=== PATIENT | female | born 1985 | race Caucasian/White ===

== ENCOUNTER → 2023-06-27 | Outpatient (CLI) | payer OTHER, SELFPAY ==
--- OUTSIDE RECORDS SUMMARY | 2023-06-27 19:38 | XMS RPT_ITS | CCD ---
Author Name Unknown Address [address] [place] [address] Organization [facility] Care Team Providers Care Stamping Operator Name Role Phone Shamir Pritchard Primary Care Provider Shamir Pritchard MD Primary Care Provider Macho AGUIAR, Shamir Primary Care Provider TEDDY PRITCHARDAH Primary Care Unavailable JASMEET YANCEY Attending Unavailable JASMEET YANCEY Referring Unavailable [facility] Primary Care Unavailable JASMEET YANCEY Attending Unavailable JASMEET YANCEY Referring Unavailable [facility] Primary Care Unavailable [facility] Attending Unavailable [facility] Referring Unavailable [facility] Primary Care Unavailable SELF, SELF Referring Unavailable MARCIA WOOD Attending Unavailable MARCIA WOOD Referring Unavailable KATHERIN LOU Attending Unavailable [facility] Primary Care Unavailable [facility] Primary Care Unavailable SELF, SELF Referring Unavailable JASMEET YANCEY Attending Unavailable SRINIVASAN DOMINGUEZ Attending Unavailable [facility] Primary Care Unavailable [facility] Primary Care Unavailable ADELITA MILLER Attending Unavailable Unavailable Primary Care Provider Unavailabl e PHYSICIAN, PCP UNKNOWN Primary Care Unavailab le PHYSICIAN, PCP UNKNOWN Primary Care Unavailab le PHYSICIAN, PCP UNKNOWN Primary Care Unavailab le SHETGERI, DEVAN U Admitting Unavailabl e PHYSICIAN, PCP UNKNOWN Primary Care Unavailab le SHETGERI, DEVAN U Referring Unavailabl e HOSPITALISTS, [facility] Consulting Unavaila ble KERI CORTEZ Attending Unavailable KINZA, ISAAC Consulting Unavailable KINZA ISAAC Consulting Unavailable ISAAC ECHOLS Consulting Unavailable Shamir Pritchard MD Primary Care Provide r [facility] Unavailable SHETGERI, DEVAN Referring Unavailable SHETGERI, DEVAN Attending Unavailable [facility] Unavailable SHETGERI, DEVAN Referring Unavailable SHETGERI, DEVAN Attending Unavailable [facility] Unavailable SHETGERI, DEVAN Referring Unavailable SHETGERI, DEVAN Attending Unavailable [facility] Unavailable SHETGERI, DEVAN Referring Unavailable SHETGERI, DEVAN Attending Unavailable [facility] Unavailable SHETGERI, DEVAN Referring Unavailable SHETGERI, DEVAN Attending Unavailable [facility] Unavailable SHETGERI, DEVAN Referring Unavailable SHETGERI, DEVAN Attending Unavailable [facility] Unavailable SHETGERI, DEVAN Referring Unavailable SHETGERI, DEVAN Attending Unavailable [facility] Unavailable SHETGERI, DEVAN Attending Unavailable SHETGERI, DEVAN Referring Unavailable [facility] Unavailable SHETGERI, DEVAN Referring Unavailable SHETGERI, DEVAN Attending Unavailable [facility] Unavailable SHETGERI, DEVAN Attending Unavailable SHETGERI, DEVAN Referring Unavailable [facility] Unavailable SHETGERI, DEVAN Attending Unavailable SHETGERI, DEVAN Referring Unavailable [facility] Unavailable SHETGERI, DEVAN Attending Unavailable SHETGERI, DEVAN Referring Unavailable [facility] Unavailable SHETGERI, DEVAN Attending Unavailable SHETGERI, DEVAN Referring Unavailable [facility] Unavailable SHETGERI, DEVAN Referring Unavailable SHETGERI, DEVAN Attending Unavailable [facility] Unavailable SHETGERI, DEVAN Referring Unavailable SHETGERI, DEVAN Attending Unavailable [facility] Unavailable [facility] Unavailable SHETGERI, DEVAN Referring Unavailable SHETGERI, DEVAN Attending Unavailable [facility] Unavail able PATRICIA RODRIGUEZ Attending Unavailab NGHIA Macias Admitting Unavailable NGHIA FULLER Referring Unavailable NGHIA FULLER Attending Unavailable NGHIA FULLER Admitting Unavailable MACHOSHAMIR [facility] Unavail able NGHIA FULLER Attending Unavailable MACHOSHAMIRTH Primary Care Unavail able NGHIA FULLER [facility] Un[facility] Allergies Allergy Classification Reported Allergen(s) Allergy Type Date of Onset Reaction(s) Facility (20 sources) Honey bee venom Propensity to adverse reactions to drug [facility] BEE VENOM PROTEIN (HONEY BEE); Translations: [BEE VENOM PROTEIN (HONEY BEE)] Propensity to adverse reactions to drug (disorder) 7 Anaphylaxis [facility] Repository Medications Current Medications Medication Drug Class(es) Dates Sig (Normalized) Sig (Original) cephalexin 500 mg oral capsule (2 sources) Cephalosporin Antibacterial Start: 09-11-2021 End: 09-18-2021 take 1 capsule by mouth every twelve hours cephALEXin 500 MG capsule Indications: Urinary frequency Take 1 capsule by mouth every 12 hours for 7 days. 14 capsule 0 09/11/2021 09/18/2021 Active Completed/Discontinued Medications Medication Drug Class(es) Dates Sig (Normalized) Sig (Original) dexamethasone phosphate 10 mg/ml injectable solution (2 sources) Corticosteroid Start: 11-21-2022 End: 11-21-2022 dexAMETHasone (DECADRON) injection 10 mg 2 ml famotidine 10 mg/ml injection (1 source) Histamine-2 Receptor Antagonist Start: 01-14-2022 End: 01-14-2022 famotidine (PF) (PEPCID) injection 20 mg Problems Active Problems Problem Classification Problem Date Documented Date Episodic/Chronic Acute and chronic tonsillitis (20 sources) Hypertrophy of tonsils; Translations: [Hypertrophy of tonsils] Onset: 09-11-2021 Chronic Disorders of lipid metabolism (9 sources) Mixed hyperlipidemia; Translations: [Mixed hyperlipidemia] Onset: 01-29-2021 01-29-2021 Chronic Genitourinary symptoms and ill-defined conditions (1 source) Increased frequency of urination; Translations: [Frequency of micturition] Episodic Menstrual disorders (1 source) Missed period; Translations: [Missed menses] Chronic Nausea and vomiting (1 source) Nausea and vomiting; Translations: [Nausea and vomiting during ] Episodic Other complications of (1 source) High risk ; Translations: [High-risk , young multigravida in first trimester] Episodic Other connective tissue disease (4 sources) Arthrodesis status; Translations: [Arthrodesis status] Onset: 03-20-2023 Episodic Other connective tissue disease (2 sources) History of cervical spine fusion; Translations: [Arthrodesis status] Onset: 04-16-2023 04-16-2023 Episodic Other lower respiratory disease (15 sources) Snoring; Translations: [Snoring] Onset: 11-28-2022 11-28-2022 Episodic Other lower respiratory disease (3 sources) Snoring; Translations: [Snoring] Onset: 11-28-2022 Episodic Other non-traumatic joint disorders (1 source) Temporomandibular joint disorder; 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 Other nutritional; endocrine; and metabolic disorders (11 sources) Body mass index 30+ - obesity; Translations: [Body mass index (BMI) 35.0-35.9, adult] Onset: 01-29-2021 Chronic Other nutritional; endocrine; and metabolic disorders (2 sources) Obesity, unspecified; Translations: [Obesity, unspecified] Onset: 04-16-2023 Chronic Other nutritional; endocrine; and metabolic disorders (9 sources) Obese class I; Translations: [Obesity (BMI 30.0-34.9)] Onset: 03-23-2019 03-23-2019 Other conditions (3 sources) Abnormality of heart; Translations: [ cardiac anomaly affecting , antepartum] Onset: 06-25-2019 06-25-2019 Chronic Other screening for suspected conditions (not mental disorders or infectious disease) (2 sources) care status; Translations: [ care, subsequent , first trimester] Episodic Other upper respiratory disease (5 sources) Chronic nasopharyngitis; Translations: [Chronic nasopharyngitis] Onset: 11-28-2022 11-28-2022 Chronic Other upper respiratory infections (4 sources) Sore throat symptom; Translations: [Acute pharyngitis, unspecified] Onset: 11-21-2022 11-21-2022 Episodic Residual codes; unclassified (2 sources) Gestation period, 9 weeks; Translations: [9 weeks gestation of ] Episodic Residual codes; unclassified (1 source) Gestation period, 12 weeks; Translations: [12 weeks gestation of ] Episodic Residual codes; unclassified (1 source) Gestation period, 20 weeks; Translations: [20 weeks gestation of ] Episodic Residual codes; unclassified (1 source) Illness, unspecified; Translations: [Illness, unspecified] Onset: 12-03-2022 Episodic Residual codes; unclassified (1 source) Gestation period, 16 weeks; Translations: [16 weeks gestation of ] Spondylosis; intervertebral disc disorders; other back problems (3 sources) Other spondylosis with radiculopathy, cervical region; Translations: [Other spondylosis with radiculopathy, cervical region] Onset: 12-03-2022 Chronic Spondylosis; intervertebral disc disorders; other back problems (12 sources) Backache; Translations: [Dorsalgia, unspecified] Onset: 11-29-2022 11-29-2022 Episodic Past or Other Problems Problem Classification Problem Date Documented Date Episodic/Chronic Abdominal pain (2 sources) Left flank pain; Translations: [Pelvic and perineal pain] Episodic Administrative/social admission (10 sources) Patient encounter status; Translations: [Encounter for adoption services] Onset: 07-29-2019 Resolved: 01-29-2021 Episodic Allergic reactions (3 sources) Contact dermatitis; Translations: [Unspecified contact dermatitis, unspecified cause] Onset: 01-14-2022 Episodic Diabetes mellitus without complication (20 sources) Abnormal glucose tolerance test; Translations: [Other abnormal glucose] Onset: 03-04-2017 Resolved: 06-21-2017 06-21-2017 Episodic Mood disorders (8 sources) Mood disorders Onset: 06-21-2017 Resolved: 06-21-2017 06-21-2017 Neoplasms of unspecified nature or uncertain behavior (9 sources) Neoplasm of uncertain behavior of connective and soft tissue; Translations: [Neoplasm of uncertain behavior of connective and other soft tissue] Onset: 05-16-2020 Resolved: 01-29-2021 05-16-2020 Episodic Other complications of ; puerperium affecting management of mother (9 sources) Abnormality of heart; Translations: [Maternal care for other (suspected) abnormality and damage, not applicable or unspecified] Onset: 06-25-2019 Resolved: 01-29-2021 07-20-2019 Episodic Other complications of ; puerperium affecting management of mother (4 sources) delivery - delivered; Translations: [Encounter for delivery without indication] Onset: 11-04-2019 Resolved: 01-29-2021 03-08-2020 Episodic Other complications of ; puerperium affecting management of mother (9 sources) Suspected disorder; Translations: [Maternal care for other (suspected) abnormality and damage, not applicable or unspecified] Onset: 06-25-2019 Resolved: 01-29-2021 03-08-2020 Episodic Other complications of ; puerperium affecting management of mother (5 sources) Deliveries by ; Translations: [Encounter for delivery without indication] Onset: 11-04-2019 Resolved: 01-29-2021 01-29-2021 Episodic Other complications of (9 sources) Maternal obesity complicating , childbirth and the puerperium, antepartum; Translations: [Obesity complicating , unspecified trimester] Onset: 09-08-2019 Resolved: 01-29-2021 03-08-2020 Chronic Other complications of (18 sources) RhD negative; Translations: [Other specified related conditions, first trimester] Onset: 02-01-2017 Resolved: 01-29-2021 04-08-2019 Episodic Other connective tissue disease (9 sources) Muscle spasm of cervical muscle of neck; Translations: [Other muscle spasm] Onset: 09-11-2021 Episodic Other ear and sense organ disorders (9 sources) Tinnitus of vascular origin; Translations: [Pulsatile tinnitus, left ear] Onset: 09-11-2021 Episodic Other female genital disorders (1 source) Pain in female genitalia; Translations: [Round ligament pain] Episodic Other nutritional; endocrine; and metabolic disorders (20 sources) Severe obesity; Translations: [Morbid (severe) obesity due to excess calories] Onset: 05-08-2017 Resolved: 06-21-2017 06-21-2017 Chronic Other nutritional; endocrine; and metabolic disorders (9 sources) Obese class I; Translations: [Obesity, unspecified] Onset: 03-23-2019 Resolved: 01-29-2021 03-23-2019 Chronic Other and delivery including normal (20 sources) Delivery normal; Translations: [Normal ] Onset: 05-07-2017 Resolved: 06-21-2017 06-21-2017 Episodic Other skin disorders (9 sources) Sebaceous cyst of skin; Translations: [Sebaceous cyst] Onset: 06-28-2020 06-28-2020 Episodic Otitis media and related conditions (9 sources) Otitis media; Translations: [Unspecified nonsuppurative otitis media, bilateral] Onset: 09-11-2021 Episodic Residual codes; unclassified (20 sources) FH: Diabetes mellitus; Translations: [Family history of diabetes mellitus] Onset: 09-14-2016 Resolved: 06-21-2017 06-21-2017 Episodic Residual codes; unclassified (20 sources) Requires diphtheria, tetanus and pertussis vaccination; Translations: [Encounter for immunization] Onset: 02-01-2017 Resolved: 06-21-2017 06-21-2017 Episodic Residual codes; unclassified (9 sources) History of third degree perineal laceration; Translations: [Personal history of other complications of , childbirth and the puerperium] Onset: 09-11-2019 Resolved: 01-29-2021 03-08-2020 Episodic Residual codes; unclassified (8 sources) Hepatitis B non-immune; Translations: [Other specified health status] Onset: 01-29-2021 01-29-2021 Episodic Substance-related disorders (12 sources) Maternal drug use; Translations: [Drug use affecting in first trimester] Onset: 09-24-2016 Resolved: 06-21-2017 06-21-2017 Episodic NEGATED: Highlighted row has been ruled out!Unclassified (3 sources) No known active problems Results Test Name Value Interpretation Reference Range Facil ity Vital Signs Date Time Vital Sign Value Performing Clinician Facility 05-13-2023 11:26-0500 Body height 165.1 cm Nghia Fuller MD Work Phone: [facility] 05-13-2023 11:26-0500 Body mass index (BMI) [Ratio] 35.99 kg/m2 Nghia Fullre MD Work Phone: [facility] 05-13-2023 11:26-0500 Body temperature 97.9 [degF] Nghia Fuller MD Work Phone: [facility] 05-13-2023 11:26-0500 Body weight 98.11 kg Nghia Fuller MD Work Phone: [facility] 03-11-2023 11:13-0400 Body height 162.6 cm Nghia Fuller MD Work Phone: [facility] 03-11-2023 11:13-0400 Body mass index (BMI) [Ratio] 36.73 kg/m2 Nghia Fuller MD Work Phone: [facility] 03-11-2023 11:13-0400 Body temperature 97.81 [degF] Nghia Fuller MD Work Phone: [facility] 03-11-2023 11:13-0400 Body weight 97.07 kg Nghia Fuller MD Work Phone: [facility] 11-29-2022 07:51-0400 Diastolic blood pressure 97 mm[Hg] Srinivasan Dominguez MD Work Phone: [facility] 11-29-2022 07:51-0400 Heart rate 66 /min Srinivasan Dominguez MD Work Phone: [facility] 11-29-2022 07:51-0400 SaO2% (BldA) [Mass fraction] 95 % Srinivasan Dominguez MD Work Phone: [facility] 11-29-2022 07:51-0400 Systolic blood pressure 135 mm[Hg] Srinivasan Dominguez MD Work Phone: [facility] 11-29-2022 07:44-0400 Respiratory rate 17 /min Srinivasan Dominguez MD Work Phone: [facility] 11-29-2022 06:38-0400 Body height 165.1 cm Srinivasan Dominguez MD Work Phone: [facility] 11-29-2022 06:34-0400 Body temperature 97.81 [degF] Srinivasan Dominguez MD Work Phone: [facility] 11-28-2022 14:32-0400 Body height 165.1 cm Katherin Lou MD Work Phone: [facility] [employer] [facility] 11-28-2022 14:32-0400 Body mass index (BMI) [Ratio] 34.63 kg/m2 Katherin Lou MD Work Phone: [facility] [employer] [facility] 11-28-2022 14:32-0400 Body temperature 97.9 [degF] Katherin Lou MD Work Phone: [facility] [employer] [facility] 11-28-2022 14:32-0400 Body weight 94.39 kg Katherin Lou MD Work Phone: [facility] 11-21-2022 18:56-0400 Body height 165.1 cm Marcia Wood MANAGER [employer]RESEARCH AND DEVELOPMENT MANAGER Work Phone: [facility] 11-21-2022 18:56-0400 Body mass index (BMI) [Ratio] 35.61 kg/m2 Marcia Wood MANAGER [employer]-RESEARCH AND DEVELOPMENT MANAGER Work Phone: [facility] 11-21-2022 18:56-0400 Body temperature 97.39 [degF] Marcia Wood MANAGER [employer]-RESEARCH AND DEVELOPMENT MANAGER Work Phone: [facility] 11-21-2022 18:56-0400 Body weight 97.07 kg Marcia Wood MANAGER [employer]-RESEARCH AND DEVELOPMENT MANAGER Work Phone: [facility] 11-21-2022 18:56-0400 Diastolic blood pressure 76 mm[Hg] Marcia Wood MANAGER [employer]OBE-RESEARCH AND DEVELOPMENT MANAGER Work Phone: [facility] 11-21-2022 18:56-0400 Heart rate 71 /min Marcia Wood MANAGER [employer]-RESEARCH AND DEVELOPMENT MANAGER Work Phone: [facility] 11-21-2022 18:56-0400 Respiratory rate 18 /min Marcia Wood MANAGER [employer]OBE-RESEARCH AND DEVELOPMENT MANAGER Work Phone: [facility] 11-21-2022 18:56-0400 SaO2% (BldA) [Mass fraction] 98 % Marcia Wood MANAGER [employer]OBE-RESEARCH AND DEVELOPMENT MANAGER Work Phone: [facility] 11-21-2022 18:56-0400 Systolic blood pressure 110 mm[Hg] Marcia Wood MANAGER ADOBE-RESEARCH AND DEVELOPMENT MANAGER Work Phone: [employer] 01-14-2022 10:09-0400 Diastolic blood pressure 64 mm[Hg] Adelita Miller DO Work Phone: [employer] 01-14-2022 10:09-0400 Heart rate 51 /min Adelita Miller DO Work Phone: [employer] 01-14-2022 10:09-0400 Respiratory rate 19 /min Adelita Miller DO Work Phone: [employer] 01-14-2022 10:09-0400 SaO2% (BldA) [Mass fraction] 100 % Adelita Miller DO Work Phone: [employer] 01-14-2022 10:09-0400 Systolic blood pressure 119 mm[Hg] Adelita Miller DO Work Phone: [employer] 01-14-2022 09:00-0400 Body height 165.1 cm Adelita Miller DO Work Phone: [employer] 01-14-2022 08:58-0400 Body temperature 98.01 [degF] Adelita Miller DO Work Phone: [employer] 09-21-2021 09:10-0400 Body mass index (BMI) [Ratio] 35.66 kg/m2 Nile Menendez MD Work Phone: [employer] 09-21-2021 09:10-0400 Body temperature 97.11 [degF] Nile Menendez MD Work Phone: [employer] 09-21-2021 09:10-0400 Body weight 97.21 kg Nile Menendez MD Work Phone: [employer] 09-11-2021 09:19-0400 Body height 165.1 cm Shamir Pritchard MD Work Phone: [employer] 09-11-2021 09:19-0400 Body mass index (BMI) [Ratio] 35.71 kg/m2 Shamir Pritchard MD Work Phone: [facility] 09-11-2021 09:19-0400 Body temperature 98.1 [degF] Shamir Pritchard MD Work Phone: [facility] 09-11-2021 09:19-0400 Body weight 97.34 kg Shamir Pritchard MD Work Phone: [facility] 09-11-2021 09:19-0400 Diastolic blood pressure 74 mm[Hg] Shamir Pritchard MD Work Phone: [facility] 09-11-2021 09:19-0400 Heart rate 63 /min Shamir Pritchard MD Work Phone: [facility] 09-11-2021 09:19-0400 Respiratory rate 18 /min Shamir Pritchard MD Work Phone: [facility] 09-11-2021 09:19-0400 SaO2% (BldA) [Mass fraction] 98 % Shamir Pritchard MD Work Phone: [facility] 09-11-2021 09:19-0400 Systolic blood pressure 118 mm[Hg] Shamir Pritchard MD Work Phone: [facility] 06-25-2019 15:43-0500 BP Diastolic 72 mm[Hg] [facility] 06-25-2019 15:43-0500 BP Systolic 110 mm[Hg] [facility] 06-25-2019 15:43-0500 Height 165.1 cm [facility] 05-28-2019 15:23-0500 BMI (Body Mass Index) 32.45 kg/m2 [facility] 05-28-2019 15:23-0500 Body weight 88.45 kg [facility] 05-28-2019 15:23-0500 BP Diastolic 68 mm[Hg] [facility] 05-28-2019 15:23-0500 BP Systolic 108 mm[Hg] [facility] 05-28-2019 15:23-0500 Height 165.1 cm [facility] 04-27-2019 08:15-0500 BMI (Body Mass Index) 32.45 kg/m2 [facility] 04-27-2019 08:15-0500 Body weight 88.45 kg [facility] 04-27-2019 08:15-0500 BP Diastolic 68 mm[Hg] [facility] 04-27-2019 08:15-0500 BP Systolic 104 mm[Hg] [facility] 04-27-2019 08:15-0500 Height 165.1 cm [facility] 04-07-2019 09:02-0500 BMI (Body Mass Index) 31.62 kg/m2 Avg Ketan Gal [id number] [facility] 04-07-2019 09:02-0500 Body weight 86.18 kg Avg Ketan Gal [id number] [facility] 04-07-2019 09:02-0500 BP Diastolic 62 mm[Hg] Avg Ketan Gal [id number] [facility] 04-07-2019 09:02-0500 BP Systolic 122 mm[Hg] Avg Ketan Gal [id number] [facility] 04-07-2019 09:02-0500 Height 165.1 cm Avg Ketan Gal [id number] [facility] 03-23-2019 10:32-0400 BMI (Body Mass Index) 31.95 kg/m2 [facility] 03-23-2019 10:32-0400 Body weight 87.09 kg [facility] 03-23-2019 10:32-0400 BP Diastolic 64 mm[Hg] [facility] 03-23-2019 10:32-0400 BP Systolic 102 mm[Hg] [facility] 03-23-2019 10:32-0400 Height 165.1 cm [facility] 03-03-2019 14:09-0400 BMI (Body Mass Index) 32.45 kg/m2 Avg Ketan Gal [id number] [facility] 03-03-2019 14:09-0400 Body weight 88.45 kg Avg Ketan Gal [id number] [facility] 03-03-2019 14:09-0400 BP Diastolic 64 mm[Hg] Avg Ketan Gal [id number] [facility] 03-03-2019 14:0400 BP Systolic 102 mm[Hg] Avg Ketan Gal [id number] [facility] 03-03-2019 14:0400 Height 165.1 cm Avg Ketan Gal [id number] [facility] Encounters Encounter Date Encounter Type Care Provider Facility Start: 05-13-2023 End: 05-13-2023 ambulatory NGHIA FULLER [facility] Start: 05-13-2023 End: 05-13-2023 Postop follow up visit related to original px Nghia Fuller MD Work Phone: [facility] Procedures Date Procedure Procedure Detail Performing Clinician Start: 11-30-2022 Mri spinal canal cervical w/o contrast matrl Jasmeet Yancey DO Work Phone: Start: 11-30-2022 Follow-up visit Follow-up JASMEET YANCEY Start: 11-30-2022 Radex spine cervical 6 or more views Jasmeet Yancey DO Work Phone: Start: 11-30-2022 XR OUTSIDE IMAGES (NO INTERPRETATION) Order Transcribing User Start: 11-28-2022 Laryngoscopy flexible diagnostic Katherin Lou MD Work Phone: Start: 09-11-2021 Urnls dip stick/tablet rgnt auto w/o microscopy Shamir Pritchard MD Work Phone: Start: 01-04-2021 End: 01-13-2021 Psychiatric diagnostic evaluation Pre-adoption interview Darrin Trent PsyD Work Phone: Plan of Treatment Date Care Activity Detail Author Start: 08-16-2029 DTaP,Tdap,and Td Vaccines (6 - Td or Tdap) DTaP,Tdap,and Td Vaccines (6 - Td or Tdap) [facility] Start: 08-16-2029 Tetanus vaccination [facility] Start: 09-10-2027 Tetanus vaccination TET[facility] Start: 05-13-2023 End: 05-13-2023 Follow-up encounter 05/13/2023 11:15 AM EST Follow-Up [facility] [address] [place] [id number] Nghia Fuller MD [address] [facility] [address] [place] [address] [facility] Start: 04-26-2023 End: 04-26-2023 Admission to same day surgery center 04/26/2023 9:01 AM EST - 04/26/2023 10:07 AM EST Surgery [facility] Periop [address] [place] [id number] Nghia Fuller MD [address] [facility] [address] [place] [address] TONSILLECTOMY [facility] Periop Immunizations Immunization Date Immunization Notes Care Provider [facility] 03-20-2020 Influenza, injectabl e, Madin Cleo Canine Kidney, preservative free, quadrivalent Shamir Pritchard MD Work Phone: [facility] 03-20-2020 influenza virus vaccine, unspecified formulation Shamir Pritchard MD Work Phone: [facility] 08-17-2019 diphtheria, tetanus toxoids and acellular pertussis vaccine, unspecified formulation [employer] [facility] 08-17-2019 tetanus toxoid, redu michael diphtheria toxoid, and acellular pertussis vaccine, adsorbed Darrin Trent PsyD Work Phone: [facility] 03-10-2019 influenza virus vaccine, unspecified formulation Darrin Trent PsyD Work Phone: [facility] 09-09-2017 diphtheria, tetanus toxoids and acellular pertussis vaccine Avg Ketan Gal [id number] Nurse [facility] 09-09-2017 diphtheria, tetanus toxoids and acellular pertussis vaccine, unspecified formulation Darrin Trent PsyD Work Phone: [facility] 03-11-2017 influenza, injectabl e, quadrivalent, contains preservative Avg Ketan Gal [id number] Nurse [facility] 03-11-2017 influenza, injectabl e, quadrivalent, preservative free [employer] [facility] 03-11-2017 influenza virus vaccine, unspecified formulation Avg Ketan Gal [id number] [facility] 10-03-2015 tetanus toxoid, redu michael diphtheria toxoid, and acellular pertussis vaccine, adsorbed Avg Ketan Gal [id number] [facility] Payers Date Payer Category Payer Private Health Insurance [id number] 2022 Unknown [id number] 2022 Unknown [id number] 2016 Unknown [id number] .[id number] 2016 Unknown [facility] ACCESS [id number] 2016-Present [address] [address] [place] [address] [id number] [id number] .[id number] 2016 Unknown [id number] 1987 Unknown [id number] 2.840.1.375450.3.579.2.9 83 1987 Unknown [id number] .840.1.672438.3.579.2.9 83 1987 Unknown [id number] .840.1.521704.3.579.2.9 83 1987 Unknown [id number] 840.1.014743.3.579.2.9 83 1987 Unknown [id number] 2.840.1.092586.3.579.2.9 83 1987 Unknown [id number] 2.16840.1.703429.3.579.2.9 83 1987 Unknown [id number] .840.1.236005.3.579.2.9 83 1987 Unknown [id number] 2.16840.1.769974.3.579.2.9 83 1987 Unknown [id number] 2.16.840.1.409848.3.579.2.1 143 1987 Unknown [id number] 2.16.840.1.440014.3.579.2.1 1987 Unknown [id number] 2.16.840.1.977970.3.579.2.1 1987 Unknown [id number] 2.16.840.1.169201.3.579.2.1 1987 Unknown [id number] 2.16.840.1.186533.3.579.2.9 83 1987 Unknown [id number] 2.16.840.1.936813.3.579.2.9 1987 Unknown [id number] 2.16.840.1.654074.3.579.2.9 1987 Unknown [id number] 2.16.840.1.898156.3.579.2.9 1987 Unknown [id number] 2.16.840.1.032290.3.579.2.9 1987 Unknown [id number] 2.16.840.1.224628.3.579.2.9 1987 Unknown [id number] 2.16.840.1.254689.3.579.2.9 1987 Unknown [id number] 2.16.840.1.037510.3.579.2.9 1987 Unknown [id number] 2.16.840.1.532605.3.579.2.9 1987 Unknown [id number] 2.16.840.1.961448.3.579.2.9 1987 Unknown [id number] 2.16.840.1.567898.3.579.2.9 1987 Unknown [id number] 2.16.840.1.861851.3.579.2.9 1987 Unknown [id number] 2.16.840.1.212798.3.579.2.9 83 1987 Unknown [id number] 2.16.840.1.719205.3.579.2.9 83 1987 Unknown [id number] 2.16.840.1.920014.3.579.2.9 83 1987 Unknown [id number] 2.16.840.1.246083.3.579.2.9 83 1987 Unknown [id number] 2.16.840.1.478137.3.579.2.9 83 1987 Unknown [id number] 2.16.840.1.282385.3.579.2.9 03 1987 Unknown [id number] 2.16.840.1.133745.3.579.2.9 03 1987 Unknown [id number] 2.16.840.1.228981.3.579.2.9 03 Social History Date Type Detail Facility Start: 03-03-2019 End: 03-11-2023 Tobacco smoking status MIIS Never smoker [facility] Start: 03-03-2019 End: 04-29-2023 Alcohol intake No [facility] Start: 02-08-2019 [facility] Start: 1985 Sex Assigned At Not on file [facility] Start: 04-07-2019 End: 11-30-2022 Alcohol intake Current non-drinker of alcohol (finding) [facility] Start: 04-07-2019 End: 10-20-2019 History SDOH Social Connections Phone 2 [facility] Start: 04-07-2019 End: 10-20-2019 History SDOH Social Connections Living 3 [facility] Start: 09-14-2016 End: 03-11-2023 Tobacco use and exposure Never used [employer] Start: 08-29-2021 End: 09-08-2021 Exposure to SARS-CoV-2 (event) Yes [facility] Start: 01-04-2022 End: 11-29-2022 Exposure to SARS-CoV-2 (event) Not sure [facility] Start: 10-20-2019 End: 04-29-2023 History of Social function [facility] [employer]ends [employer] Not on file [facility] Are you now , , , , never or living with a partner? [facility] Gender identity Identifies as fe male gender (finding) [facility] Tobacco smoking stat [facility] Tobacco smoking consumption unknown [facility] Start: 03-11-2023 End: 05-13-2023 Alcohol intake Lifetime non-drinker (finding) [facility] Clinical Notes 01-04-2021 to 05-13-2023 Nghia Fuller MD - 05/13/2023 11:31 AM Ani Collins MA - 05/13/2023 11:30 AM ESTPatient InstructionsNghia Fuller MD - 03/11/2023 11:30 AM EDTDischarge InstructionsAttachments Note Date & Type Note Facility 05-13-2023 History of Presen t illness Narrative [facility] [address] [facility] [place] [address] [facility] [id number] Dept: [phone] MD Clary [facility] 37 y.o. female Patient presents with a chief complaint of Post-op (2 week post op tonsils 04/26/23) Temp 97.9 F (36.6 C) (Temporal) Ht 5' 5 Wt 98.1 kg (216 lb 4.8 oz) LMP 04/09/2023 (Exact Date) BMI 35.99 kg/m History of Presenting Illness: The patient/caregiver reports a history of complaint with the following features: She reports that she is doing better after struggling some with throat and ear pain. The additional steroid course did help with her pain. She feels the need to yawn more than usual, but is tolerating a regular diet. Her snoring has resolved at this time. Review of systems covering 10 systems is reviewed and pertinent positives and negatives are noted as above. Past Medical History: Diagnosis Date Chronic pharyngitis and nasopharyngitis Dysphagia Mixed hyperlipidemia Neck pain Obesity Tinnitus No current outpatient medications on file. Allergies Allergen Reactions Bee Venom Protein (Honey Bee) Anaphylaxis Past Surgical History: Procedure Laterality Date CERVICAL FUSION 12/05/2022 Anterior C5, C6 & C7 SECTION 11/03/2019 EXCISION CYST / MASS / LESION OF CONJUNCTIVA 06/10/2020 mass on back TONSILLECTOMY Bilateral 04/26/2023 Procedure: TONSILLECTOMY; Surgeon: Nghia Fuller MD; Location: Main OR; Service: Otolaryngology UMBILICAL HERNIA REPAIR 3 WEEKS OLD Social History Socioeconomic History Marital status: Tobacco Use Smoking status: Never Smokeless tobacco: Never Vaping Use Vaping Use: Never used Substance and Sexual Activity Alcohol use: Never Drug use: Never Family History Problem Relation Age of Onset Thyroid disease Mother Migraines Mother Atrial fibrillation Mother Diabetes Father Heart attack Father No Known Problems Brother Osteoarthritis Maternal Grandmother Stroke Maternal Grandmother Macular degeneration Maternal Grandmother Cancer Maternal Grandfather Diabetes Paternal Grandmother PHYSICAL EXAM: The patient was examined today 05/13/2023 with findings as follows: CONSTITUTIONAL: General Appearance: well-appearing, nontoxic, alert, no acute distress Communication: understanding at normal conversational tones, normal voicing, speech intelligible HEAD/FACE: Head: atraumatic, normocephalic, no lesions Facial Inspection: no lesions, healthy skin Facial Strength: motor strength normal, symmetric strength, symmetric movement Sinuses: no sinus tenderness EYES: Pupils: PERRLA, extra-ocular movements intact, no nystagmus, sclera white, no redness of eyes, no watering of eyes NOSE: Nasal Skin: no lesions, no lacerations, no scars Nasal Dorsum: symmetric with no visible or palpable deformities Nasal Tip: normal symmetric nasal tip, normal nasal valves Nasal Mucosa: normal, pink and moist Septum: not markedly deformed, midline, no exposed vessels, no bleeding, no septal granuloma Turbinates: normal size and conformation Nasopharynx: normal ORAL CAVITY/MOUTH: Lips, teeth, gums: normal lips, normal gums, dentition intact, no dental pain on palpation Oral Mucosa: normal, moist, no lesions Palate: normal hard palate, normal soft palate, symmetric palatal elevation Floor of Mouth: normal floor of mouth Tongue: normal tongue, no lesions, no edema, no masses, normal mucosa, mobile Tonsils: absent, healing fossa without bleeding or clots Posterior pharynx: normal NECK: Neck: no masses, trachea midline, normal range of motion, no cysts or pits, no tenderness to palpation Thyroid: normal thyroid, no enlargement, no tenderness, no nodules LYMPH NODES: Cervical: no palpable lymph node enlargement SKIN: General Appearance: no lesions, warm and dry, normal turgor, no bruising NEUROLOGICAL SYSTEM: Orientation: oriented to time, oriented to place, oriented to person PSYCHIATRIC: Mood and affect: normal mood, normal affect Assessment and Plan: The patient and/or caregiver presents for follow-up after tonsillectomy without significant pain or other complaints and appears to be healing well. I am hopeful this will give ongoing relief of their complaints. I have advised that the risk of bleeding at this point is minimal and that the patient may return to a regular diet and activity as tolerated. The patient and/or caregiver is to contact me for any bleeding for repeat assessment. The patient and/or caregiver is able to state an understanding of these recommendations and is agreeable to the treatment plan. 1. Chronic tonsillitis 2. Snoring Return if symptoms worsen or fail to improve. The patient and/or caregiver is to notify the office if no improvement or worsening of symptoms is noted prior to the scheduled follow-up for sooner evaluation. The patient and/or caregiver is able to state an understanding of these recommendations and is agreeable to the treatment plan. --Nghia Fuller MD on 05/13/2023 at 11:37 AM An electronic signature was used to authenticate this note. Review of Systems Constitutional: Negative. HENT: Negative. Eyes: Negative. Respiratory: Negative. Cardiovascular: Negative. Gastrointestinal: Negative. Endocrine: Negative. Genitourinary: Negative. Musculoskeletal: Negative. Skin: Negative. Allergic/Immunologic: Negative. Neurological: Negative. Hematological: Negative. Psychiatric/Behavioral: Negative. documented in this encounter [facility] 03-11-2023 Instructions Nghia Fuller MD - 03/11/2023 11:44 AM EDT TONSILLECTOMY Tonsils are mounds of tissue related to lymph nodes that are found at the sides of the back of the throat. They are a small part of the many lymph nodes that make up our immune system. Removing them has not been shown to affect immune function. They are present in everyone at and may become quite large, especially in childhood, but will often shrink in size as a person grows older. At times, the tonsils may harbor infectious bacteria or viruses causing pain and discomfort, or become so large that they block breathing or eating. Rarely the tonsils may harbor growths, tumors, or other lesions. REASONS FOR SURGERY- How is the decision made? Removal of the tonsils is a decision to be made between the surgeon and the patient or family. Generally, removal is recommended when one or more of the following symptoms or findings are noted: ? Frequent sore throats occurring 3 or more times a year, especially with lost work or school attendance ? Strep throat infection documented by culture more than 3 times a year, or a positive culture after antibiotic therapy and resolution of symptoms is noted ? Breathing problems with snoring, pauses in breathing, poor sleep or restlessness, excessive daytime tiredness, attention difficulties, bed-wetting, or poor school performance are noted ? Tonsil enlargement causes difficulty with eating or appetite, gagging, or similar problems ? The tonsils are of unequal size, have an ulcer or other concerning appearance ? Other problems as discussed with your doctor SURGICAL TREATMENT- What are the Risks, Alternatives, Potential Complications, and Benefits? ? Risks- The greatest risk from tonsillectomy is from bleeding at the surgical site. The estimated frequency of bleeding from tonsillectomy is around 3% (three patients out of one hundred.) This may occur at any time after the surgery, but the risk is generally greatest immediately after surgery, and again about 7-10 days later when healing allows the scab to fall off. There is also a small risk of complications from anesthesia. ? Alternatives- Most surgery on the tonsils is elective, which means that you may choose to have no treatment or to treat the problem with medication or by other means. Sometimes a decision to not have treatment can have serious consequences that you should discuss with your doctor. ? Complications- The most severe complication is bleeding that could result in the need for a blood transfusion or . This is extremely rare. There is also a small risk of scarring, injury to the teeth, throat, tongue, other structures of the mouth, throat, and neck, changes in voice quality, or re-growth of the tonsil tissue requiring repeated surgery. Notify your doctor immediately if any bleeding from the nose or mouth is noted after surgery. ? Benefits- Most tonsil surgery is without complications. Success in relieving most conditions is excellent. RECOVERY- What should I expect? Recovery generally lasts 1-2 weeks, often less in children, and sometimes longer in adults. Most people can go home the same day of surgery after observation for a short period of time. For children less than 3 years of age, those with other medical problems, or that live more than one hour away, an overnight hospital stay may be required. Once you have gone home, common events in the recovery period and expectations of what is normal are listed below. Call your doctor if you have any questions or concerns that are not answered here. ? Pain- Pain is an expected part of recovery after surgery. Pain may be noted in the throat, back of the neck, or in the ears (which can be quite severe), jaw, or mouth. This is treated with oral pain medication: TYLENOL? ELIXIR MG every 4 hours by mouth as needed for pain, AND IBUPROFEN ELIXIR MG every 6 hours by mouth as needed for pain. It is important to take the medication at regular intervals, including waking up at night to take it. This will help avoid waking in pain which can make taking more medicine difficult. Take only the medication prescribed by your doctor. It is common for pain to worsen three to four days after surgery. This is a result of the steroid medication that was given in surgery wearing off. Pain should improve in the next few days. If it does not, or is not relieved by the pain medication taken as prescribed, call your doctor. ? Bad breath- This is very common and sometimes bothersome. This is normal and occurs from the bacteria that grow on the scab in the throat which appears as a white patch where the tonsils once were. Eating and drinking will wash this away and improve this complaint. ? Nausea and vomiting- These are usually due to the effects of anesthesia and should subside in the first day or two. If they continue, are related to taking the pain medication, or contain blood, notify your doctor. ? Fever- A low grade temperature of less than 102 F for a few days after surgery is normal. Notify your doctor for fever above this, or one that persists for greater than 3 days. ? Eating and drinking- Many people are reluctant to eat and drink due to pain after surgery. It is important that drinking is encouraged to avoid dehydration. Ice chips, popsicles, Jell-O, as well as juices (avoid citrus) and water are generally well tolerated. Signs of dehydration include loose skin, sunken eyes or absence of tears, dark yellow or orange urine, or the failure to urinate at least twice a day. Call your doctor if unable to take liquids or signs of dehydration are noted. ? Activity- It is recommended that heavy lifting, exertion, and other strenuous activity be avoided for one to two weeks after surgery. Children should stay home from school for the first week. They may return the second week, but should refrain from participating in recess or gym. Do not drive or operate machinery while on pain medication. ? MEDICATIONS- Ask your doctor about resuming your home medications. Do not take herbal medications without asking your doctor as these often have blood thinning properties which can increase the risk of bleeding. CONTINUING CARE- What additional care do I need? Your doctor will see you for follow-up evaluation in approximately two weeks after surgery unless another time has been arranged. Call the office if an appointment has not been previously scheduled. At this time, most healing is complete, pain has resolved, and a regular diet is well tolerated. NOTICE: THIS DOCUMENT IS INTENDED SOLELY FOR PATIENT EDUCATIONAL PURPOSES AND IS PROVIDED A COURTESY TO PATIENTS OF DR. NGHIA FULLER MD. IT IS NOT INTENDED A SUBSTITUTE FOR PROFESSIONAL MEDICAL CARE OR ADVICE. THE PATIENT SHOULD SEEK ADVICE FROM THE PHYSICIAN IF THERE ARE ANY QUESTIONS ABOUT THE CONTENTS OR DIRECTIONS PROVIDED IN THIS DOCUMENT documented in this encounter [facility] 03-11-2023 History of Presen t illness Narrative [facility] [address] [facility] [place] [address] [facility] [address] Dept: [phone] Nghia Fuller MD Clary Casonlianne 37 y.o. female Patient presents with a chief complaint of Sore Throat (Large tonsils) Temp 97.8 F (36.6 C) Ht 5' 4 Wt 97.1 kg (214 lb) BMI 36.73 kg/m History of Presenting Illness: The patient/caregiver reports a history of complaint with the following features: Onset: large tonsils for years, but very large over summer with trouble breathing Timing: ongoing Duration: lasted a few days Quality: large tonsils, worsening snoring Location: throat Severity: pain none Risk factors: cervical fusion this summer Alleviating factors: oral steroids Aggravating factors: nothing makes it worse Associated factors: no fevers, chills, sweats, she reports waking fatigued about half of the time Review of systems covering 10 systems is reviewed and pertinent positives and negatives are noted as above. Past Medical History: Diagnosis Date Chronic pharyngitis and nasopharyngitis Dysphagia Mixed hyperlipidemia Neck pain Obesity Tinnitus No current outpatient medications on file. Allergies Allergen Reactions Bee Venom Protein (Honey Bee) Anaphylaxis Past Surgical History: Procedure Laterality Date CERVICAL FUSION 12/05/2022 Anterior C5, C6 & C7 SECTION 11/03/2019 EXCISION CYST / MASS / LESION OF CONJUNCTIVA 06/10/2020 mass on back UMBILICAL HERNIA REPAIR Social History Socioeconomic History Marital status: Tobacco Use Smoking status: Never Smokeless tobacco: Never Substance and Sexual Activity Alcohol use: Never Drug use: Never Family History Problem Relation Age of Onset Thyroid disease Mother Migraines Mother Diabetes Father Heart attack Father Osteoarthritis Maternal Grandmother Stroke Maternal Grandmother Macular degeneration Maternal Grandmother Cancer Maternal Grandfather Diabetes Paternal Grandmother PHYSICAL EXAM: The patient was examined today 03/11/2023 with findings as follows: CONSTITUTIONAL: General Appearance: well-appearing, nontoxic, alert, no acute distress Communication: understanding at normal conversational tones, mild hoarse voicing, speech intelligible HEAD/FACE: Head: atraumatic, normocephalic, no lesions Facial Inspection: no lesions, healthy skin Facial Strength: motor strength normal, symmetric strength, symmetric movement Sinuses: no sinus tenderness Salivary Glands: no enlargements of parotid glands, no tenderness of parotid glands, no masses of parotid glands, clear salivary flow on palpation from Stensen's ducts, no duct stones of Stensen's duct, no enlargement of submandibular glands, no tenderness of submandibular glands, no masses of submandibular glands, clear salivary flow from Castro's ducts, no stones of Castro's ducts Temporomandibular Joint: no crepitus with motion, no tenderness on palpation, no trismus, motion symmetric EYES: Pupils: PERRLA, extra-ocular movements intact, no nystagmus, sclera white, no redness of eyes, no watering of eyes EARS: Bilateral External Ears: no pits, no tags Right External Ear: normally formed, no lesions, no mastoid tenderness Left External Ear: normally formed, no lesions, no mastoid tenderness Right External Auditory Canal: normal, healthy skin, no obstructing cerumen, no discharge Left External Auditory Canal: normal, healthy skin, no obstructing cerumen, no discharge Right Tympanic Membrane: normal landmarks, translucent, mobile to pneumatic otoscopy, no perforation Left Tympanic Membrane: normal landmarks, translucent, mobile to pneumatic otoscopy, no perforation Hearing: intact to spoken voice NOSE: Nasal Skin: no lesions, no lacerations, no scars Nasal Dorsum: symmetric with no visible or palpable deformities Nasal Tip: normal symmetric nasal tip, normal nasal valves Nasal Mucosa: normal, pink and moist Septum: not markedly deformed, midline, no exposed vessels, no bleeding, no septal granuloma Turbinates: normal size and conformation Nasopharynx: normal ORAL CAVITY/MOUTH: Lips, teeth, gums: normal lips, normal gums, dentition intact, no dental pain on palpation Oral Mucosa: normal, moist, no lesions Palate: normal hard palate, normal soft palate, symmetric palatal elevation Floor of Mouth: normal floor of mouth Tongue: normal tongue, no lesions, no edema, no masses, normal mucosa, mobile Tonsils: 3+ cryptic tonsils, symmetric, no lesions Posterior pharynx: normal NECK: Neck: no masses, trachea midline, normal range of motion, no cysts or pits, no tenderness to palpation, healed right anterior fusion scar Thyroid: normal thyroid, no enlargement, no tenderness, no nodules LYMPH NODES: Cervical: no palpable lymph node enlargement RESPIRATORY: Inspection/Auscultation: good air movement, chest expands symmetrically, normal breath sounds, no wheezing, no stridor CARDIOVASCULAR SYSTEM: Auscultation: regular rate and rhythm, carotid pulse normal, no carotid thrills, no carotid bruits Observation/Palpation of Peripheral Vascular System: no varicosities, no cyanosis, no edema SKIN: General Appearance: no lesions, warm and dry, normal turgor, no bruising NEUROLOGICAL SYSTEM: Orientation: oriented to time, oriented to place, oriented to person Cranial Nerves: Cranial Nerves II-XII intact, normal facial movement PSYCHIATRIC: Mood and affect: normal mood, normal affect Assessment and Plan: She presents with large tonsils with a breathing difficulty event over the summer requiring steroid and worsening snoring with reduced sleep efficiency. This is reasonably attributable to her tonsillar hypertrophy and surgery is offered. She will need attention to avoiding hyperextension of the neck due to her cervical fusion. Surgical treatment is recommended upon review of the patient's history, clinical presentation, exam, and available testing and laboratory data. The risks, alternatives, potential complications, and benefits of surgery are discussed at length. The surgical procedure, pre-operative preparation, and post-operative course are discussed. Any questions are answered to the patient's and/or caregiver's satisfaction and they are agreeable to proceed. An informational sheet covering this information is also provided. Witnessed informed surgical consent is signed in the office. The patient and/or caregiver is able to state an understanding of these recommendations and is agreeable to the treatment plan. 1. Chronic tonsillitis Case Request Operating Room: TONSILLECTOMY Height and weight Vital signs Intermittent pneumatic compression device Bilat LE POC , Urine 2. Snoring Case Request Operating Room: TONSILLECTOMY No follow-ups on file. The patient and/or caregiver is to notify the office if no improvement or worsening of symptoms is noted prior to the scheduled follow-up for sooner evaluation. The patient and/or caregiver is able to state an understanding of these recommendations and is agreeable to the treatment plan. --Nghia Fuller MD on 03/11/2023 at 11:45 AM An electronic signature was used to authenticate this note. Review of Systems Constitutional: Negative. Eyes: Negative. Respiratory: Negative. Cardiovascular: Negative. Gastrointestinal: Negative. Endocrine: Negative. Genitourinary: Negative. Musculoskeletal: Negative. Skin: Negative. Allergic/Immunologic: Positive for environmental allergies. Neurological: Negative. Hematological: Negative. Psychiatric/Behavioral: Negative. documented in this encounter [facility] 11-29-2022 Emergency departm ent Note All discharge instructions, medications, and follow up recommendations reviewed. All questions answered. Pt and family verbalized understanding. [facility] 11-29-2022 Emergency departm ent Note All discharge instructions, medications, and follow up recommendations reviewed. All questions answered. Pt and family verbalized understanding. Emergency Room Note [facility] EMERGENCY DEPARTMENT Service Date:.11/29/22 PCP: Shamir Pritchard Chief Complaint: Chief Complaint Patient presents with Neck Pain Shoulder Pain Pt complains of neck, upper back, and right shoulder pain that started yesterday. Creating some pain, numbness down the right arm. HPI Clary Anand is a 36 y.o. female presents to the ED today due to right sided upper back pain. Patient have pain right upper back since yesterday. Pain worse this morning. Very sharp, stabbing pain. Sometimes goes into the right arm. She has no trauma. She slept on her daughter's bed and since then has had some issues. She states she has had some pain in the past and has seen Dr. Yancey but the pain this morning is very severe in intensity and she cannot sleep. Review of Systems: Review of Systems No fever or chills. No upper respiratory, gastrointestinal, or genitourinary complaints. No falls or trauma. No rash. She has had some issues with back pain previously. Past Medical History: Past Medical History: Diagnosis Date delivery delivered 11/04/2019 hypoplastic left heart affecting antepartum care of mother 06/25/2019 Current Overview for Clary Anand (updated 07/02/2019) Name Clary Anand Concerns Hypoplastic Left Heart Syndrome EDC Family Supports : Sergio Genetic Testing: Consults & Findings [facility] Echo 07/07/19 1. 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 2. 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 3. There is mild mitral valve regurgitation. 4. Small secundum atrial A History of chickenpox History of third degree perineal laceration 09/11/2019 Maternal care for other (suspected) abnormality and damage, not applicable or unspecified 06/25/2019 Current Overview for Clary Anand (updated 07/02/2019) Name Clary Anand Concerns Hypoplastic Left Heart Syndrome EDC Family Supports : Sergio Genetic Testing: Consults & Findings [facility] Echo 07/07/19 1. 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 2. 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 3. 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 05/16/2020 Added automatically from request for surgery [id number] Obesity affecting , antepartum 09/08/2019 Papanicolaou smear 08/01/2016 consult 07/29/2019 Rh negative status during in first trimester 04/08/2019 Will need Rhophylac at 28 weeks Past Surgical History: Past Surgical History: Procedure Laterality Date EXCISION LESION SOFT TISSUE BACK FLANK N/A 06/10/2020 Excision SQ mass back (2cm) SECTION 11/03/[address] Gordon Geronimo at [facility] REPAIR HERNIA UMBILICAL LAPAROSCOPIC [facility] Allergies: Allergies Allergen Reactions Honey Bee Venom Medications: Patient's Medications New Prescriptions CYCLOBENZAPRINE 10 MG TABLET Take 1 tablet by mouth 3 times daily as needed for Muscle spasms. IBUPROFEN 600 MG TABLET Take 1 tablet by mouth 3 times daily as needed for Mild Pain (Take with food.) for up to 5 days. TRAMADOL 50 MG TABLET Take 1 tablet by mouth every 4 hours as needed for Moderate Pain or Severe Pain for up to 4 days. Previous Medications CLINDAMYCIN 300 MG CAPSULE Take 1 capsule by mouth 3 times daily for 10 days. FEXOFENADINE-PSEUDOEPHEDRINE 60-120 MG TAB SR 12 HR TABLET Take 1 tablet by mouth 2 times daily. Take for one week, then call with an update PHENAZOPYRIDINE 200 MG TABLET Take 1 tablet by mouth 2 times daily. Modified Medications No medications on file Discontinued Medications HYDROXYZINE HCL 25 MG TABLET Take 1 tablet by mouth 3 times daily as needed for Itching. PREDNISONE 20 MG TABLET 3 tabs daily x 3days; 2 tabs daily x 3days; 1 tab daily x 3days then 1/2 tablet daily x 3days Family History: Family History Problem Relation Age of Onset Diabetes Father diabetes mellitus type 1 Myocardial Infarction Father Stroke Maternal Grandmother stroke x2, CHF Age-Related Macular Degeneration Maternal Grandmother Diabetes Paternal Grandmother Type 1 Arthritis - Osteo Maternal Grandfather Cancer Maternal Grandfather small cell lung Lung Cancer Maternal Grandfather Thyroid Disease Mother Migraines Mother Other - Specify Son hypoplastic left heart Social History: Social History Socioeconomic History Marital status: Spouse name: Not on file Number of children: Not on file Years of education: Not on file Highest education level: Not on file Occupational History Not on file Tobacco Use Smoking status: Never Smokeless tobacco: Never Vaping Use Vaping Use: Never used Substance and Sexual Activity Alcohol use: No Drug use: Never Sexual activity: Not Currently Partners: Male control/protection: None Other Topics Concern Service Not Asked Blood Transfusions Not Asked Caffeine Concern Not Asked Occupational Exposure Not Asked Hobby Hazards Not Asked Sleep Concern Not Asked Stress Concern Not Asked Weight Concern Not Asked Special Diet Not Asked Back Care Not Asked Exercise Not Asked Bike Helmet Not Asked Seat Belt Not Asked Domestic Violence Not Asked Social History Narrative Not on file Social Determinants of Health Financial Resource Strain: Not on file Food Insecurity: Not on file Transportation Needs: Not on file Physical Activity: Not on file Stress: Not on file Social Connections: Unknown (10/20/2019) Social Connection and Isolation Panel [NHANES] Frequency of Communication with Friends and Family: Once a week Frequency of Social Gatherings with Friends and Family: Once a week Attends Evangelical Services: Not on file Active Member of Clubs or Organizations: Not on file Attends Club or Organization Meetings: Not on file Marital Status: Intimate Partner Violence: Not At Risk (10/20/2019) Humiliation, Afraid, Rape, and Kick questionnaire Fear of Current or Ex-Partner: No Emotionally Abused: No Physically Abused: No Sexually Abused: No Housing Stability: Not on file Physical Exam: Physical Exam The pleasant 36-year-old female who is awake alert. Speaking in full sentences. No respiratory distress. Neck is supple trachea is midline. She is not tender over the spinous processes or paraspinous musculature of the neck. Range of motion neck does not seem to exacerbate her affect her pain. She is not tender over the spinous processes of the thoracic or lumbar area. She is tender to palpation over the right mid thoracic paraspinous musculature and rhomboid muscle area. This seems to exacerbate her pain. She is not tender over the more cephalad trapezius muscle. She does not seem to be tender latissimus dorsi laterally. She is not tender over the shoulder girdle. Her pain is only mildly exacerbated with resisted abduction at the shoulder. It does seem to be exacerbated with rotation of the trunk. She is not tender over the left thoracic musculature of the back. She is not tender over the lower back. 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 She can pull me towards her and push me away from her. She has good symmetric strength in the upper extremities. Radial pulses are palpable and symmetrical. Capillary refill is brisk distally. She has sensation in the fingertips. Neuro vasculature is intact in the upper extremities. Skin is warm and dry. No rash. There is no erythema or warmth. No signs of cellulitis, lymphangitis, or abscess. No evidence of zoster. Vital Signs During ED Visit Patient Vitals for the past 24 hrs: BP Temp Temp src Pulse Resp SpO2 Height 11/29/22 0638 -- -- -- -- -- -- 1.651 m (5' 5 ) 11/29/22 0634 106/67 97.8 F (36.6 C) Oral 66 16 98 % -- Orders/Results: Orders Placed This Encounter AMB REFERRAL TO PHYSICAL MEDICINE REHAB orphenadrine (NORFLEX) injection 60 mg Morphine (PF) injection 2 mg ondansetron (ZOFRAN-ODT) disintegrating tablet 4 mg Ibuprofen 600 MG tablet Cyclobenzaprine 10 MG tablet traMADol 50 MG tablet Results for orders placed or performed in visit on 11/21/22 POCT RAPID STREP A Result Value Ref Range POCT RAPID STREP A negative (+/-) Radiographic Imaging No orders to display Procedures: Procedures Moderate Sedation Procedure: No ED Summary/MDM Patient appears to be very uncomfortable. I did treat her with Zofran, Norflex, and morphine here in emergency department. She will be discharged home with a prescription for Flexeril, Motrin, and Ultram. I did instruct her she can use Tylenol as directed along with this. Follow-up with Dr. Yancey next week for recheck. I called Dr. Yancey and spoke with him. He will see the patient in the office next week. Her pain is reproduced with palpation in the mid thoracic paraspinous and rhomboid area but she is complaining of this sharp pain that goes into her arm. I am concerned that she may have some radicular component to her pain which is why I want make sure she is followed up. I discussed treatment and plan with the patient. She voiced understanding and agreement with this. No further questions at this time. I did have to print her Ultram prescription because the E-prescribing system is down at this time. [place] [employer] prescription reporting System report reviewed. No controlled substances filled in the past 52 weeks. I do feel is appropriate to treat this patient's severe pain at this time with a course of Ultram as above. Clinical Impression: 1. Upper back pain on right side No follow-ups on file. New Prescriptions CYCLOBENZAPRINE 10 MG TABLET Take 1 tablet by mouth 3 times daily as needed for Muscle spasms. IBUPROFEN 600 MG TABLET Take 1 tablet by mouth 3 times daily as needed for Mild Pain (Take with food.) for up to 5 days. TRAMADOL 50 MG TABLET Take 1 tablet by mouth every 4 hours as needed for Moderate Pain or Severe Pain for up to 4 days. Discontinued Medications HYDROXYZINE HCL 25 MG TABLET Take 1 tablet by mouth 3 times daily as needed for Itching. PREDNISONE 20 MG TABLET 3 tabs daily x 3days; 2 tabs daily x 3days; 1 tab daily x 3days then 1/2 tablet daily x 3days An After Visit Summary was printed and given to the patient with above information. . Srinivasan Dominguez MD 11/29/22 0748 documented in this encounter [facility] 11-29-2022 Physician Emergen cy department Note Emergency Room Note [facility] EMERGENCY DEPARTMENT Service Date:.11/29/22 PCP: Shamir Pritchard Chief Complaint: Chief Complaint Patient presents with Neck Pain Shoulder Pain Pt complains of neck, upper back, and right shoulder pain that started yesterday. Creating some pain, numbness down the right arm. HPI Clary Anand is a 36 y.o. female presents to the ED today due to right sided upper back pain. Patient have pain right upper back since yesterday. Pain worse this morning. Very sharp, stabbing pain. Sometimes goes into the right arm. She has no trauma. She slept on her daughter's bed and since then has had some issues. She states she has had some pain in the past and has seen Dr. Yancey but the pain this morning is very severe in intensity and she cannot sleep. Review of Systems: Review of Systems No fever or chills. No upper respiratory, gastrointestinal, or genitourinary complaints. No falls or trauma. No rash. She has had some issues with back pain previously. Past Medical History: Past Medical History: Diagnosis Date delivery delivered 11/04/2019 hypoplastic left heart affecting antepartum care of mother 06/25/2019 Current Overview for Clary Anand (updated 07/02/2019) Name Clary Anand Concerns Hypoplastic Left Heart Syndrome EDC Family Supports : Sergio Genetic Testing: Consults & Findings [facility] Echo 07/07/19 1. 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 2. 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 3. There is mild mitral valve regurgitation. 4. Small secundum atrial A History of chickenpox History of third degree perineal laceration 09/11/2019 Maternal care for other (suspected) abnormality and damage, not applicable or unspecified 06/25/2019 Current Overview for Clary Anadn (updated 07/02/2019) Name Clary Anand Concerns Hypoplastic Left Heart Syndrome EDC Family Supports : Sergio Genetic Testing: Consults & Findings [facility] Echo 07/07/19 1. 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 2. 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 3. 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 05/16/2020 Added automatically from request for surgery [id number] Obesity affecting , antepartum 09/08/2019 Papanicolaou smear 08/01/2016 consult 07/29/2019 Rh negative status during in first trimester 04/08/2019 Will need Rhophylac at 28 weeks Past Surgical History: Past Surgical History: Procedure Laterality Date EXCISION LESION SOFT TISSUE BACK FLANK N/A 06/10/2020 Excision SQ mass back (2cm) SECTION 11/03/[address] Gordon Geronimo at [facility] REPAIR HERNIA UMBILICAL LAPAROSCOPIC [facility] Allergies: Allergies Allergen Reactions Honey Bee Venom Medications: Patient's Medications New Prescriptions CYCLOBENZAPRINE 10 MG TABLET Take 1 tablet by mouth 3 times daily as needed for Muscle spasms. IBUPROFEN 600 MG TABLET Take 1 tablet by mouth 3 times daily as needed for Mild Pain (Take with food.) for up to 5 days. TRAMADOL 50 MG TABLET Take 1 tablet by mouth every 4 hours as needed for Moderate Pain or Severe Pain for up to 4 days. Previous Medications CLINDAMYCIN 300 MG CAPSULE Take 1 capsule by mouth 3 times daily for 10 days. FEXOFENADINE-PSEUDOEPHEDRINE 60-120 MG TAB SR 12 HR TABLET Take 1 tablet by mouth 2 times daily. Take for one week, then call with an update PHENAZOPYRIDINE 200 MG TABLET Take 1 tablet by mouth 2 times daily. Modified Medications No medications on file Discontinued Medications HYDROXYZINE HCL 25 MG TABLET Take 1 tablet by mouth 3 times daily as needed for Itching. PREDNISONE 20 MG TABLET 3 tabs daily x 3days; 2 tabs daily x 3days; 1 tab daily x 3days then 1/2 tablet daily x 3days Family History: Family History Problem Relation Age of Onset Diabetes Father diabetes mellitus type 1 Myocardial Infarction Father Stroke Maternal Grandmother stroke x2, CHF Age-Related Macular Degeneration Maternal Grandmother Diabetes Paternal Grandmother Type 1 Arthritis - Osteo Maternal Grandfather Cancer Maternal Grandfather small cell lung Lung Cancer Maternal Grandfather Thyroid Disease Mother Migraines Mother Other - Specify Son hypoplastic left heart Social History: Social History Socioeconomic History Marital status: Spouse name: Not on file Number of children: Not on file Years of education: Not on file Highest education level: Not on file Occupational History Not on file Tobacco Use Smoking status: Never Smokeless tobacco: Never Vaping Use Vaping Use: Never used Substance and Sexual Activity Alcohol use: No Drug use: Never Sexual activity: Not Currently Partners: Male control/protection: None Other Topics Concern Service Not Asked Blood Transfusions Not Asked Caffeine Concern Not Asked Occupational Exposure Not Asked Hobby Hazards Not Asked Sleep Concern Not Asked Stress Concern Not Asked Weight Concern Not Asked Special Diet Not Asked Back Care Not Asked Exercise Not Asked Bike Helmet Not Asked Seat Belt Not Asked Domestic Violence Not Asked Social History Narrative Not on file Social Determinants of Health Financial Resource Strain: Not on file Food Insecurity: Not on file Transportation Needs: Not on file Physical Activity: Not on file Stress: Not on file Social Connections: Unknown (10/20/2019) Social Connection and Isolation Panel [NHANES] Frequency of Communication with Friends and Family: Once a week Frequency of Social Gatherings with Friends and Family: Once a week Attends Evangelical Services: Not on file Active Member of Clubs or Organizations: Not on file Attends Club or Organization Meetings: Not on file Marital Status: Intimate Partner Violence: Not At Risk (10/20/2019) Humiliation, Afraid, Rape, and Kick questionnaire Fear of Current or Ex-Partner: No Emotionally Abused: No Physically Abused: No Sexually Abused: No Housing Stability: Not on file Physical Exam: Physical Exam The pleasant 36-year-old female who is awake alert. Speaking in full sentences. No respiratory distress. Neck is supple trachea is midline. She is not tender over the spinous processes or paraspinous musculature of the neck. Range of motion neck does not seem to exacerbate her affect her pain. She is not tender over the spinous processes of the thoracic or lumbar area. She is tender to palpation over the right mid thoracic paraspinous musculature and rhomboid muscle area. This seems to exacerbate her pain. She is not tender over the more cephalad trapezius muscle. She does not seem to be tender latissimus dorsi laterally. She is not tender over the shoulder girdle. Her pain is only mildly exacerbated with resisted abduction at the shoulder. It does seem to be exacerbated with rotation of the trunk. She is not tender over the left thoracic musculature of the back. She is not tender over the lower back. 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 She can pull me towards her and push me away from her. She has good symmetric strength in the upper extremities. Radial pulses are palpable and symmetrical. Capillary refill is brisk distally. She has sensation in the fingertips. Neuro vasculature is intact in the upper extremities. Skin is warm and dry. No rash. There is no erythema or warmth. No signs of cellulitis, lymphangitis, or abscess. No evidence of zoster. Vital Signs During ED Visit Patient Vitals for the past 24 hrs: BP Temp Temp src Pulse Resp SpO2 Height 11/29/22 0638 -- -- -- -- -- -- 1.651 m (5' 5 ) 11/29/22 0634 106/67 97.8 F (36.6 C) Oral 66 16 98 % -- Orders/Results: Orders Placed This Encounter AMB REFERRAL TO PHYSICAL MEDICINE REHAB orphenadrine (NORFLEX) injection 60 mg Morphine (PF) injection 2 mg ondansetron (ZOFRAN-ODT) disintegrating tablet 4 mg Ibuprofen 600 MG tablet Cyclobenzaprine 10 MG tablet traMADol 50 MG tablet Results for orders placed or performed in visit on 11/21/22 POCT RAPID STREP A Result Value Ref Range POCT RAPID STREP A negative (+/-) Radiographic Imaging No orders to display Procedures: Procedures Moderate Sedation Procedure: No ED Summary/MDM Patient appears to be very uncomfortable. I did treat her with Zofran, Norflex, and morphine here in emergency department. She will be discharged home with a prescription for Flexeril, Motrin, and Ultram. I did instruct her she can use Tylenol as directed along with this. Follow-up with Dr. Yancey next week for recheck. I called Dr. Yancey and spoke with him. He will see the patient in the office next week. Her pain is reproduced with palpation in the mid thoracic paraspinous and rhomboid area but she is complaining of this sharp pain that goes into her arm. I am concerned that she may have some radicular component to her pain which is why I want make sure she is followed up. I discussed treatment and plan with the patient. She voiced understanding and agreement with this. No further questions at this time. I did have to print her Ultram prescription because the E-prescribing system is down at this time. [place] [employer] prescription reporting System report reviewed. No controlled substances filled in the past 52 weeks. I do feel is appropriate to treat this patient's severe pain at this time with a course of Ultram as above. Clinical Impression: 1. Upper back pain on right side No follow-ups on file. New Prescriptions CYCLOBENZAPRINE 10 MG TABLET Take 1 tablet by mouth 3 times daily as needed for Muscle spasms. IBUPROFEN 600 MG TABLET Take 1 tablet by mouth 3 times daily as needed for Mild Pain (Take with food.) for up to 5 days. TRAMADOL 50 MG TABLET Take 1 tablet by mouth every 4 hours as needed for Moderate Pain or Severe Pain for up to 4 days. Discontinued Medications HYDROXYZINE HCL 25 MG TABLET Take 1 tablet by mouth 3 times daily as needed for Itching. PREDNISONE 20 MG TABLET 3 tabs daily x 3days; 2 tabs daily x 3days; 1 tab daily x 3days then 1/2 tablet daily x 3days An After Visit Summary was printed and given to the patient with above information. . Srinivasan Dominguez MD 11/29/22 0748 [facility] 11-29-2022 Hospital Discharg e instructions Srinivasan Dominguez MD - 11/29/2022 7:[address] Yancey is office to day and schedule follow-up next week. You can take Tylenol 500 mg every 4-6 hours as needed for aches or pains along with prescribed medications. The following attachments cannot be sent through Care Everywhere.Back Pain ([place])Back Pain: Relief: General Info ([place])documented in this encounter [facility] 11-28-2022 History of Presen t illness Narrative HISTORY OF PRESENT ILLNESS- Clary Anand is a 36 y.o. female who comes in with the following complaint(s): NEWPT* Acute pharyngitis, unspecified etiology Tonsil asymmetry. Pt states that last week she went to the urgent care due to her tonsils being swollen. Pt was also told by her that she also snores. CHIEF COMPLAINT: Clary Anand presents to the office for Chief Complaint Patient presents with New Patient Acute pharyngitis, unspecified etiology Tonsil asymmetry HISTORY OF PRESENT ILLNESS- Clary Anand is a 36 y.o. female who comes in with the following complaint(s): NEWPT* Acute pharyngitis, unspecified etiology Tonsil asymmetry. Pt states that last week she went to the urgent care due to her tonsils being swollen. One of her tonsils was so swollen it was pushing on her uvula. Her PCP has told her the tonsils are increasing in size. Pt was also told by her that she also snores and it has been getting worse. She state she can feel a lump in her throat when she eats. ROS- Pertinent items are noted in HPI. PHYSICAL EXAM/VITALS: Vitals: 11/28/22 1432 Temp: 97.9 F (36.6 C) Physical Exam Vitals and nursing note reviewed. Constitutional: Appearance: Normal appearance. She is not ill-appearing. HENT: Head: Normocephalic. Nose: Nose normal. Mouth/Throat: Tonsils: 4+ on the right. 4+ on the left. Comments: 4+ tonsils obstructing the airway Eyes: General: Right eye: No discharge. Left eye: No discharge. Cardiovascular: Rate and Rhythm: Normal rate. Pulmonary: Effort: Pulmonary effort is normal. Abdominal: General: There is no distension. Musculoskeletal: General: Normal range of motion. Cervical back: Normal range of motion. Skin: General: Skin is warm and dry. Capillary Refill: Capillary refill takes less than 2 seconds. Neurological: General: No focal deficit present. Mental Status: She is alert and oriented to person, place, and time. Psychiatric: Mood and Affect: Mood normal. All previous testing/results have been reviewed. ASSESSMENT/IMPRESSION: ICD-10-CM 1. Chronic tonsillitis J35.01 2. Snoring R06.83 PLAN: Diagnostic laryngoscopy done today. Prior to the procedure, most of the common possible complications and/or risks, side effects and benefits were explained to the patient. Tonsillectomy & LLT in the future (February) patient will call to schedule, signed consent and talked to Camilla montilla documented in this encounter [facility] 11-28-2022 Instructions Marion Horvath - 11/28/2022 2:30 PM EDT Diagnostic laryngoscopy done today. After surgery: Chew gum constantly for the next 3 months. Bubble gum is the best type to chew. For the next 10 days, drink plenty of cold liquids and eat cold soft foods as tolerated. If bleeding occurs, safely drive to [facility] Emergency Department to be seen. documented in this encounter [facility] 11-28-2022 Procedure note Associated Ord er(s): [place] LARYNGOSCOPY FLEXIBLE DIAGNOSTIC The flexible laryngoscope was used to evaluate the patient's upper airway. The laryngeal structures appeared to be within normal limits including the epiglottis. There is evidence of a moderate amount of lymphoid tissue present at the patient's base of tongue, in the vallecula, consistent with a lingual tonsil. It appears to be benign in nature. [facility] 11-28-2022 Procedure note Associated Ord er(s): [place] LARYNGOSCOPY FLEXIBLE DIAGNOSTIC The flexible laryngoscope was used to evaluate the patient's upper airway. The laryngeal structures appeared to be within normal limits including the epiglottis. There is evidence of a moderate amount of lymphoid tissue present at the patient's base of tongue, in the vallecula, consistent with a lingual tonsil. It appears to be benign in nature. documented in this encounter [facility] 11-21-2022 History of Presen t illness Narrative URGENT CARE eNCOUnter CHIEF COMPLAINT Gland Swelling (X 5 days. ) SEDA Clary Anand is a 36 y.o. female who presents today for a 4 day history of sever sore throat and tonsilar edema. She states Saturday evening she was concerned as she felt her throat was closing due to edema. Pt is dysphonic today but denies dysphagia. Swallowing is painful but able to pass food and fluids without incident. Low grade fever at home. REVIEW OF SYSTEMS Review of Systems Constitutional: Positive for fever. Negative for chills. HENT: Positive for sore throat. Respiratory: Negative for cough and shortness of breath. Cardiovascular: Negative for chest pain and palpitations. Gastrointestinal: Negative for abdominal pain, diarrhea, nausea and vomiting. Endocrine: Negative for polydipsia, polyphagia and polyuria. Genitourinary: Negative for difficulty urinating. Musculoskeletal: Negative for arthralgias and myalgias. Skin: Negative for color change and rash. Neurological: Negative for dizziness, syncope, light-headedness and headaches. All other systems reviewed and are negative. PAST MEDICAL HISTORY Past Medical History: Diagnosis Date delivery delivered 11/04/2019 hypoplastic left heart affecting antepartum care of mother 06/25/2019 Current Overview for Clary Anand (updated 07/02/2019) Name Clary Anand Concerns Hypoplastic Left Heart Syndrome EDC Family Supports : Sergio Genetic Testing: Consults & Findings [facility] Echo 07/07/19 1. 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 2. 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 3. There is mild mitral valve regurgitation. 4. Small secundum atrial A History of chickenpox History of third degree perineal laceration 09/11/2019 Maternal care for other (suspected) abnormality and damage, not applicable or unspecified 06/25/2019 Current Overview for Clary Anand (updated 07/02/2019) Name Clary Anand Concerns Hypoplastic Left Heart Syndrome EDC Family Supports : Sergio Genetic Testing: Consults & Findings [facility] Echo 07/07/19 1. 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 2. 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 3. 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 05/16/2020 Added automatically from request for surgery [id number] Obesity affecting , antepartum 09/08/2019 Papanicolaou smear 08/01/2016 consult 07/29/2019 Rh negative status during in first trimester 04/08/2019 Will need Rhophylac at 28 weeks SURGICAL HISTORY Past Surgical History: Procedure Laterality Date EXCISION LESION SOFT TISSUE BACK FLANK N/A 06/10/2020 Excision SQ mass back (2cm) SECTION 11/03/[address] Gordon Geronimo at [facility] REPAIR HERNIA UMBILICAL LAPAROSCOPIC [facility] CURRENT MEDICATIONS Current Outpatient Medications Medication Sig Dispense Refill fexofenadine-pseudoephedrine 60-120 MG Tab SR 12 HR tablet Take 1 tablet by mouth 2 times daily. Take for one week, then call with an update (Patient not taking: Reported on 11/21/2022) 60 tablet 0 hydrOXYzine HCl 25 MG tablet Take 1 tablet by mouth 3 times daily as needed for Itching. (Patient not taking: Reported on 11/21/2022) 21 tablet 0 phenazopyridine 200 MG tablet Take 1 tablet by mouth 2 times daily. (Patient not taking: Reported on 11/21/2022) 6 tablet 0 predniSONE 20 MG tablet 3 tabs daily x 3days; 2 tabs daily x 3days; 1 tab daily x 3days then 1/2 tablet daily x 3days (Patient not taking: Reported on 11/21/2022) 20 tablet 2 No current facility-administered medications for this visit. ALLERGIES Allergies Allergen Reactions Honey Bee Venom FAMILY HISTORY Family History Problem Relation Age of Onset Diabetes Father diabetes mellitus type 1 Myocardial Infarction Father Stroke Maternal Grandmother stroke x2, CHF Age-Related Macular Degeneration Maternal Grandmother Diabetes Paternal Grandmother Type 1 Arthritis - Osteo Maternal Grandfather Cancer Maternal Grandfather small cell lung Lung Cancer Maternal Grandfather Thyroid Disease Mother Migraines Mother Other - Specify Son hypoplastic left heart SOCIAL HISTORY Social History Socioeconomic History Marital status: Spouse name: Not on file Number of children: Not on file Years of education: Not on file Highest education level: Not on file Occupational History Not on file Tobacco Use Smoking status: Never Smokeless tobacco: Never Vaping Use Vaping Use: Never used Substance and Sexual Activity Alcohol use: No Drug use: Never Sexual activity: Not Currently Partners: Male control/protection: None Other Topics Concern Service Not Asked Blood Transfusions Not Asked Caffeine Concern Not Asked Occupational Exposure Not Asked Hobby Hazards Not Asked Sleep Concern Not Asked Stress Concern Not Asked Weight Concern Not Asked Special Diet Not Asked Back Care Not Asked Exercise Not Asked Bike Helmet Not Asked Seat Belt Not Asked Domestic Violence Not Asked Social History Narrative Not on file Social Determinants of Health Financial Resource Strain: Not on file Food Insecurity: Not on file Transportation Needs: Not on file Physical Activity: Not on file Stress: Not on file Social Connections: Unknown (10/20/2019) Social Connection and Isolation Panel [NHANES] Frequency of Communication with Friends and Family: Once a week Frequency of Social Gatherings with Friends and Family: Once a week Attends Evangelical Services: Not on file Active Member of Clubs or Organizations: Not on file Attends Club or Organization Meetings: Not on file Marital Status: Intimate Partner Violence: Not At Risk (10/20/2019) Humiliation, Afraid, Rape, and Kick questionnaire Fear of Current or Ex-Partner: No Emotionally Abused: No Physically Abused: No Sexually Abused: No Housing Stability: Not on file PHYSICAL EXAM BP 110/76 (BP Location: Right arm, BP Position: Sitting) Pulse 71 Temp 97.4 F (36.3 C) (Temporal) Resp 18 Ht 1.651 m (5' 5 ) Wt 97.1 kg (214 lb) SpO2 98% BMI 35.61 kg/m Smoking Status Never Physical Exam Vitals and nursing note reviewed. Constitutional: General: She is not in acute distress. Appearance: She is not toxic-appearing or diaphoretic. HENT: Head: Normocephalic and atraumatic. Right Ear: External ear normal. Left Ear: External ear normal. Nose: Nose normal. Mouth/Throat: Lips: [place]. Mouth: Mucous membranes are moist. Dentition: Normal dentition. No dental tenderness. Tongue: No lesions. Palate: No lesions. Pharynx: Posterior oropharyngeal erythema present. No oropharyngeal exudate or uvula swelling. Tonsils: No tonsillar exudate or tonsillar abscesses. 3+ on the right. 4+ on the left. Eyes: General: Right eye: No discharge. Left eye: No discharge. Conjunctiva/sclera: Conjunctivae normal. Cardiovascular: Rate and Rhythm: Normal rate and regular rhythm. Pulses: Normal pulses. Heart sounds: Normal heart sounds. No murmur heard. No friction rub. No gallop. Pulmonary: Effort: Pulmonary effort is normal. No respiratory distress. Breath sounds: Normal breath sounds. No wheezing, rhonchi or rales. Musculoskeletal: Cervical back: Normal range of motion and neck supple. Lymphadenopathy: Cervical: Cervical adenopathy present. Skin: General: Skin is warm and dry. Capillary Refill: Capillary refill takes less than 2 seconds. Coloration: Skin is not pale. Findings: No rash. Neurological: General: No focal deficit present. Mental Status: She is alert and oriented to person, place, and time. Psychiatric: Mood and Affect: Mood normal. Behavior: Behavior normal. Diagnosis, Assessment & Plan: Clary was seen today for gland swelling. Diagnoses and all orders for this visit: Sore throat - POCT RAPID STREP A Acute pharyngitis, unspecified etiology - dexAMETHasone (DECADRON) injection 10 mg Tonsil asymmetry - dexAMETHasone (DECADRON) injection 10 mg Strep test was negative considering of the size of her tonsils, particularly the left 1 as she received 10 mg of IM dexamethasone in the clinic. She does have mild dysphonia and painful swallowing. She is able to speak clear sentences follow her secretions and fluid. Considering versus he did fever, differential includes tonsillar abscess. After discussing with the patient, we will presumptively treat her with clindamycin and a 5 day course of oral prednisone beginning tomorrow. A referral to ENT to Dr. Lou was placed on the patient's behalf and patient is aware. She is to continue with warm saltwater gargles and [id number] throat spray as needed. Parameters were discussed when to seek emergency care and patient states understanding MARIANA Short 11/21/2022 documented in this encounter [facility] 11-21-2022 Instructions MARIANA Short - 11/21/2022 6:50 PM EDT Acute pharyngitis We will presumptively treat with clindamycin 3 times a day for 10 days in the case of a tonsillar abscess Tomorrow start oral prednisone, 3 pills once daily for 5 days A referral was placed to ENT to Dr. Lou. His office will call you to set and Please continue with warm saltwater gargles, and itsw-gyl-wgqhuqh throat spray If at any time you have difficulty breathing, swallowing her secretions are fluid, go to the emergency department documented in this encounter [facility] 01-14-2022 Emergency departm ent Note Medication follow up on Pepcid and Solu Medrol, no adverse reactions noted. [facility] 01-14-2022 Emergency departm ent Note Medication follow up on Pepcid and Solu Medrol, no adverse reactions noted. Emergency Department Report [facility] EMERGENCY DEPARTMENT Service Date:.01/14/22 PCP: Shamir Pritchard Chief Complaint: Chief Complaint Patient presents with Rash Pt reports a rash and facial swelling that started on Saturday but is worse today. Denies SOB Facial Swelling HPI Clary Anand is a 36 y.o. female presents to the ED today due to Patient has what appears be a histamine mediated rash and likely an environmental exposure rash. She has had it for the last week. She had tried a short course of 1 8 and felt some improvement, but now that steroids were stopped and is appears be getting worse. It does appear to be a eczematoid/contact dermatitis rash. On the left forearm there is one linear area that is vesiculated and this might be a plant dermatitis such as poison ellis/poison oak/poison sumac. However, the other areas appear to be more diffuse reddened skin, slight elevation of the reddened skin area, slight thickening of the skin without yet scaling, and no significant pinpoint eschars in the past. No history of significant seasonal allergies in the past. Review of Systems: Skin rash for the last week that appears to be progressing. There was a period of some mild temporary relief with the utilization of prednisone but not utilizing prednisone at this time. Review of Systems Past Medical History: Past Medical History: Diagnosis Date delivery delivered 11/04/2019 hypoplastic left heart affecting antepartum care of mother 06/25/2019 Current Overview for Clary Anand (updated 07/02/2019) Name Clary Anand Concerns Hypoplastic Left Heart Syndrome EDC Family Supports : Sergio Genetic Testing: Consults & Findings [facility] Echo 07/07/19 1. 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 2. 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 3. There is mild mitral valve regurgitation. 4. Small secundum atrial A History of chickenpox History of third degree perineal laceration 09/11/2019 Maternal care for other (suspected) abnormality and damage, not applicable or unspecified 06/25/2019 Current Overview for Clary Anand (updated 07/02/2019) Name Clary Anand Concerns Hypoplastic Left Heart Syndrome EDC Family Supports : Sergio Genetic Testing: Consults & Findings [facility] Echo 07/07/19 1. 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 2. 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 3. 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 05/16/2020 Added automatically from request for surgery [id number] Obesity affecting , antepartum 09/08/2019 Papanicolaou smear 08/01/2016 consult 07/29/2019 Rh negative status during in first trimester 04/08/2019 Will need Rhophylac at 28 weeks Past Surgical History: Past Surgical History: Procedure Laterality Date EXCISION LESION SOFT TISSUE BACK FLANK N/A 06/10/2020 Excision SQ mass back (2cm) SECTION 11/03/[address] Gordon Geronimo at [facility] REPAIR HERNIA UMBILICAL LAPAROSCOPIC [facility] Allergies: Allergies Allergen Reactions Honey Bee Venom Medications: Patient's Medications New Prescriptions No medications on file Previous Medications FEXOFENADINE-PSEUDOEPHEDRINE 60-120 MG TAB SR 12 HR TABLET Take 1 tablet by mouth 2 times daily. Take for one week, then call with an update Modified Medications No medications on file Discontinued Medications No medications on file Family History: Family History Problem Relation Age of Onset Diabetes Father diabetes mellitus type 1 Myocardial Infarction Father Stroke Maternal Grandmother stroke x2, CHF Age-Related Macular Degeneration Maternal Grandmother Diabetes Paternal Grandmother Type 1 Arthritis - Osteo Maternal Grandfather Cancer Maternal Grandfather small cell lung Lung Cancer Maternal Grandfather Thyroid Disease Mother Migraines Mother Other - Specify Son hypoplastic left heart Social History: Social History Socioeconomic History Marital status: Spouse name: Not on file Number of children: Not on file Years of education: Not on file Highest education level: Not on file Occupational History Not on file Tobacco Use Smoking status: Never Smoker Smokeless tobacco: Never Used Vaping Use Vaping Use: Never used Substance and Sexual Activity Alcohol use: No Drug use: Never Sexual activity: Not Currently Partners: Male control/protection: None Other Topics Concern Service Not Asked Blood Transfusions Not Asked Caffeine Concern Not Asked Occupational Exposure Not Asked Hobby Hazards Not Asked Sleep Concern Not Asked Stress Concern Not Asked Weight Concern Not Asked Special Diet Not Asked Back Care Not Asked Exercise Not Asked Bike Helmet Not Asked Seat Belt Not Asked Domestic Violence Not Asked Social History Narrative Not on file Social Determinants of Health Financial Resource Strain: Not on file Food Insecurity: Not on file Transportation Needs: Not on file Physical Activity: Not on file Stress: Not on file Social Connections: Not on file Intimate Partner Violence: Not on file Housing Stability: Not on file Physical Exam: @PHYSICALEXAM@ Patient is awake alert and active. Vital signs were reviewed. Mental status is good. The rash definitely appears to be a histamine mediated rash. Dermatographia is noted when the skin is scratched. On the left forearm area, there is one single area of linear redness that is starting to vesiculated and just above this several reddened areas with some eschars from scratching. She has some thickening of the skin on the left neck/chest/trapezius area, the right neck mildly, the facial area with somewhat more involvement of the left than the right side. The skin is reddened. Serpiginous borders are noted. Thickening of the skin started to develop. No scaling or eschars noted and these other areas. No other obvious linear vesicular lesions noted. Little bit of involvement in the left upper lid as well. Vital Signs During ED Visit Patient Vitals for the past 24 hrs: BP Temp Temp src Pulse Resp SpO2 Height 01/14/22 0900 -- -- -- -- -- -- 1.651 m (5' 5 ) 01/14/22 0858 126/55 98 F (36.7 C) Oral 72 18 99 % -- Differential Diagnosis: Contact dermatitis-histamine mediated rash Orders/Results: Orders Placed This Encounter sodium chloride 0.9% IV solution 500 mL methylPREDNISolone sodium succinate (SOLU-MEDROL) injection 125 mg famotidine (PF) (PEPCID) injection 20 mg Results for orders placed or performed in visit on 09/11/21 URINE CULTURE Specimen: URINE - CLEAN CATCH Result Value Ref Range SPECIMEN DESCRIPTION URINE CLEAN CATCH UA Dipstick LEUKOCYTE POSITIVE RESULT-CULT ESCHERICHIA COLI Report Status 09/15/2021 ORGANISM IDENTIFIED ESCHERICHIA COLI Susceptibility Escherichia coli - TERRANCE (UG/ML/INTERP)* Ampicillin Resistant Ampicillin/Sulbactam (c) Intermediate Ceftriaxone Sensitive Cefazolin Sensitive Imipenem Sensitive Gentamicin Sensitive Trimethoprim/Sulfamethoxazol Sensitive Amoxicillin/Clavulanic A Sensitive Nitrofurantoin Sensitive Piperacillin/Tazobactam(d) Sensitive Levofloxacin Sensitive ESBL Susceptible Ertapenem Sensitive Ceftazidime Sensitive * ESCHERICHIA COLI POCT URINE DIPSTICK AUTOMATED Result Value Ref Range POCT APPEARANCE, URINE Cloudy POCT COLOR, URINE Dark Yellow POCT GLUCOSE, URINE Neg mg/dL POCT BILIRUBIN, URINE Neg POCT KETONES, URINE Neg mg/dL POCT SPECIFIC GRAVITY, URINE >=1.030 1.001 - 1.035 POCT BLOOD, URINE 2+ POCT PH, URINE 5.5 5 - 7 POCT PROTEIN, URINE Neg mg/dL POCT UROBILINOGEN, URINE 0.2 0 - 2 E.U./dL POCT NITRITE, URINE Pos POCT LEUKOCYTE, URINE Trace POCT ESTERASE, URINE POCT BACTERIA, URINE POCT WBC, URINE POCT RBC, URINE POCT AMORPHOUS, URINE POCT CASTS, QUANTITATIVE, URINE POCT SQUAMOUS EPIS, URINE POCT RENAL EPIS, URINE POCT CRYSTALS, URINE POCT URINE COMMENTS, URINE POCT MICROSCOPIC Radiographic Imaging No orders to display Lab/Imaging Results Summary: None required Moderate Sedation: Procedures: Procedures Progress Notes/Re-evaluation: the patient actually seems to be improving. Rash has not dissipated, but the redness in his pain reactions certainly started to decrease. Patient was discharged. ED Summary: Going to go ahead and start with an IV fluid bolus and Solu-Medrol 125 mg intravenously as well as Pepcid 20 mg intravenously. Discharge will be with a steroid Dosepak. This can be utilized as long is a rashes present. I would suspect that this is likely a contact dermatitis/plant dermatitis and likely initial exposure on the left forearm area with a linear vesicular lesion. There does appear to be more involvement of the left side of the face is possible that they could have been some plant juices or plant material on the left side of the body that she then spread to the face and neck from touching. Definitely appears be history irrigated and I am quite confident will improve with medication. Clinical Impression: Acute histamine mediated rash-contact dermatitis likely No diagnosis found. No follow-ups on file. New Prescriptions No medications on file Discontinued Medications No medications on file An After Visit Summary was printed and given to the patient with above information. Portions of this chart were created using [employer] electronic dictation. Please excuse any typographical or grammatical errors contained herein . Adelita Miller DO 01/14/22 1044 documented in this encounter [facility] 01-14-2022 Physician Emergen cy department Note Emergency Department Report [facility] EMERGENCY DEPARTMENT Service Date:.01/14/22 PCP: Shamir Pritchard Chief Complaint: Chief Complaint Patient presents with Rash Pt reports a rash and facial swelling that started on Saturday but is worse today. Denies SOB Facial Swelling HPI Clary Anand is a 36 y.o. female presents to the ED today due to Patient has what appears be a histamine mediated rash and likely an environmental exposure rash. She has had it for the last week. She had tried a short course of 1 8 and felt some improvement, but now that steroids were stopped and is appears be getting worse. It does appear to be a eczematoid/contact dermatitis rash. On the left forearm there is one linear area that is vesiculated and this might be a plant dermatitis such as poison ellis/poison oak/poison sumac. However, the other areas appear to be more diffuse reddened skin, slight elevation of the reddened skin area, slight thickening of the skin without yet scaling, and no significant pinpoint eschars in the past. No history of significant seasonal allergies in the past. Review of Systems: Skin rash for the last week that appears to be progressing. There was a period of some mild temporary relief with the utilization of prednisone but not utilizing prednisone at this time. Review of Systems Past Medical History: Past Medical History: Diagnosis Date delivery delivered 11/04/2019 hypoplastic left heart affecting antepartum care of mother 06/25/2019 Current Overview for Clary Anand (updated 07/02/2019) Name Clary Anand Concerns Hypoplastic Left Heart Syndrome EDC Family Supports : Sergio Genetic Testing: Consults & Findings [facility] Echo 07/07/19 1. 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 2. 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 3. There is mild mitral valve regurgitation. 4. Small secundum atrial A History of chickenpox History of third degree perineal laceration 09/11/2019 Maternal care for other (suspected) abnormality and damage, not applicable or unspecified 06/25/2019 Current Overview for Clary Anand (updated 07/02/2019) Name Clary Anand Concerns Hypoplastic Left Heart Syndrome EDC Family Supports : Sergio Genetic Testing: Consults & Findings [facility] Echo 07/07/19 1. 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 2. 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 3. 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 05/16/2020 Added automatically from request for surgery [id number] Obesity affecting , antepartum 09/08/2019 Papanicolaou smear 08/01/2016 consult 07/29/2019 Rh negative status during in first trimester 04/08/2019 Will need Rhophylac at 28 weeks Past Surgical History: Past Surgical History: Procedure Laterality Date EXCISION LESION SOFT TISSUE BACK FLANK N/A 06/10/2020 Excision SQ mass back (2cm) SECTION 11/03/[address] Gordon Geronimo at [facility] REPAIR HERNIA UMBILICAL [facility] Allergies: Allergies Allergen Reactions Honey Bee Venom Medications: Patient's Medications New Prescriptions No medications on file Previous Medications FEXOFENADINE-PSEUDOEPHEDRINE 60-120 MG TAB SR 12 HR TABLET Take 1 tablet by mouth 2 times daily. Take for one week, then call with an update Modified Medications No medications on file Discontinued Medications No medications on file Family History: Family History Problem Relation Age of Onset Diabetes Father diabetes mellitus type 1 Myocardial Infarction Father Stroke Maternal Grandmother stroke x2, CHF Age-Related Macular Degeneration Maternal Grandmother Diabetes Paternal Grandmother Type 1 Arthritis - Osteo Maternal Grandfather Cancer Maternal Grandfather small cell lung Lung Cancer Maternal Grandfather Thyroid Disease Mother Migraines Mother Other - Specify Son hypoplastic left heart Social History: Social History Socioeconomic History Marital status: Spouse name: Not on file Number of children: Not on file Years of education: Not on file Highest education level: Not on file Occupational History Not on file Tobacco Use Smoking status: Never Smoker Smokeless tobacco: Never Used Vaping Use Vaping Use: Never used Substance and Sexual Activity Alcohol use: No Drug use: Never Sexual activity: Not Currently Partners: Male control/protection: None Other Topics Concern Service Not Asked Blood Transfusions Not Asked Caffeine Concern Not Asked Occupational Exposure Not Asked Hobby Hazards Not Asked Sleep Concern Not Asked Stress Concern Not Asked Weight Concern Not Asked Special Diet Not Asked Back Care Not Asked Exercise Not Asked Bike Helmet Not Asked Seat Belt Not Asked Domestic Violence Not Asked Social History Narrative Not on file Social Determinants of Health Financial Resource Strain: Not on file Food Insecurity: Not on file Transportation Needs: Not on file Physical Activity: Not on file Stress: Not on file Social Connections: Not on file Intimate Partner Violence: Not on file Housing Stability: Not on file Physical Exam: @PHYSICALEXAM@ Patient is awake alert and active. Vital signs were reviewed. Mental status is good. The rash definitely appears to be a histamine mediated rash. Dermatographia is noted when the skin is scratched. On the left forearm area, there is one single area of linear redness that is starting to vesiculated and just above this several reddened areas with some eschars from scratching. She has some thickening of the skin on the left neck/chest/trapezius area, the right neck mildly, the facial area with somewhat more involvement of the left than the right side. The skin is reddened. Serpiginous borders are noted. Thickening of the skin started to develop. No scaling or eschars noted and these other areas. No other obvious linear vesicular lesions noted. Little bit of involvement in the left upper lid as well. Vital Signs During ED Visit Patient Vitals for the past 24 hrs: BP Temp Temp src Pulse Resp SpO2 Height 01/14/22 0900 -- -- -- -- -- -- 1.651 m (5' 5 ) 01/14/22 0858 126/55 98 F (36.7 C) Oral 72 18 99 % -- Differential Diagnosis: Contact dermatitis-histamine mediated rash Orders/Results: Orders Placed This Encounter sodium chloride 0.9% IV solution 500 mL methylPREDNISolone sodium succinate (SOLU-MEDROL) injection 125 mg famotidine (PF) (PEPCID) injection 20 mg Results for orders placed or performed in visit on 09/11/21 URINE CULTURE Specimen: URINE - CLEAN CATCH Result Value Ref Range SPECIMEN DESCRIPTION URINE CLEAN CATCH UA Dipstick LEUKOCYTE POSITIVE RESULT-CULT ESCHERICHIA COLI Report Status 09/15/2021 ORGANISM IDENTIFIED ESCHERICHIA COLI Susceptibility Escherichia coli - TERRANCE (UG/ML/INTERP)* Ampicillin Resistant Ampicillin/Sulbactam (c) Intermediate Ceftriaxone Sensitive Cefazolin Sensitive Imipenem Sensitive Gentamicin Sensitive Trimethoprim/Sulfamethoxazol Sensitive Amoxicillin/Clavulanic A Sensitive Nitrofurantoin Sensitive Piperacillin/Tazobactam(d) Sensitive Levofloxacin Sensitive ESBL Susceptible Ertapenem Sensitive Ceftazidime Sensitive * ESCHERICHIA COLI POCT URINE DIPSTICK AUTOMATED Result Value Ref Range POCT APPEARANCE, URINE Cloudy POCT COLOR, URINE Dark Yellow POCT GLUCOSE, URINE Neg mg/dL POCT BILIRUBIN, URINE Neg POCT KETONES, URINE Neg mg/dL POCT SPECIFIC GRAVITY, URINE >=1.030 1.001 - 1.035 POCT BLOOD, URINE 2+ POCT PH, URINE 5.5 5 - 7 POCT PROTEIN, URINE Neg mg/dL POCT UROBILINOGEN, URINE 0.2 0 - 2 E.U./dL POCT NITRITE, URINE Pos POCT LEUKOCYTE, URINE Trace POCT ESTERASE, URINE POCT BACTERIA, URINE POCT WBC, URINE POCT RBC, URINE POCT AMORPHOUS, URINE POCT CASTS, QUANTITATIVE, URINE POCT SQUAMOUS EPIS, URINE POCT RENAL EPIS, URINE POCT CRYSTALS, URINE POCT URINE COMMENTS, URINE POCT MICROSCOPIC Radiographic Imaging No orders to display Lab/Imaging Results Summary: None required Moderate Sedation: Procedures: Procedures Progress Notes/Re-evaluation: the patient actually seems to be improving. Rash has not dissipated, but the redness in his pain reactions certainly started to decrease. Patient was discharged. ED Summary: Going to go ahead and start with an IV fluid bolus and Solu-Medrol 125 mg intravenously as well as Pepcid 20 mg intravenously. Discharge will be with a steroid Dosepak. This can be utilized as long is a rashes present. I would suspect that this is likely a contact dermatitis/plant dermatitis and likely initial exposure on the left forearm area with a linear vesicular lesion. There does appear to be more involvement of the left side of the face is possible that they could have been some plant juices or plant material on the left side of the body that she then spread to the face and neck from touching. Definitely appears be history irrigated and I am quite confident will improve with medication. Clinical Impression: Acute histamine mediated rash-contact dermatitis likely No diagnosis found. No follow-ups on file. New Prescriptions No medications on file Discontinued Medications No medications on file An After Visit Summary was printed and given to the patient with above information. Portions of this chart were created using Dragon electronic dictation. Please excuse any typographical or grammatical errors contained herein . Adelita Miller DO 01/14/22 10[address] [facility] 09-21-2021 History of Presen t illness Narrative New patient presents in office today with complaints of thumping in ears . Patient stats this started early July. She states is kind of sounds like her heartbeat, it comes and goes. Denies and tinnitus. She states she has a light pressure on the left side above her jaw kind of behind her left eye. Denies any ear drainage. Her pcp told her she had a lot of fluid behind left eardrum. Denies hx of ear infections. Denies any previous ear surgeries such as tubes. Denies any hearing loss or family hx of hearing loss. Denies hx of loud noise exposure. Chief Complaint: Chief Complaint Patient presents with New Patient Thumping in ears HPI 09/24/2021: Ms. Anand is a 35 y.o. female who presents with complaints of thumping tinnitus in the left ear since a few weeks ago. The patient mentions that the tinnitus is intermittent. The patient denies any otalgia, otorrhea or otorrhagia. She does felt hat the tinnitus goes with her heart beat. She denies any sensation of hearing loss. She has no history of any ear surgeries. She has no history of loud noise exposure. She has no family history of hearing loss. She has felt a pressure in front of the left ear approximately behind the eye at times of the tinnitus. She has not noticed any time of day or any activity that seems to be making the tinnitus and the pressure worse. She has been told by her dentist previously that she appears to grind her teeth. ROS: Constitutional: Negative for fever, weight loss and weight gain. Cardiovascular: Negative for chest pain and dyspnea on exertion (Can climb up 2 floors). Respiratory: Is not experiencing shortness of breath. Gastrointestinal: Negative for nausea and vomiting. Neurological: Negative for headaches. Psychiatric: The patient is not nervous/anxious. Musculoskeletal: negative for neck pain/stiffness Skin: negative for color change Endocrine: negative for heat/cold intolerance Hematologic: negative for adenopathy or bruising/bleeding easily. Past Medical History: Past Medical History: Diagnosis Date delivery delivered 11/04/2019 hypoplastic left heart affecting antepartum care of mother 06/25/2019 Current Overview for Clary Anand (updated 07/02/2019) Name Clary Anand Concerns Hypoplastic Left Heart Syndrome EDC Family Supports : Sergio Genetic Testing: Consults & Findings [facility] Echo 07/07/19 1. 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 2. 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 3. There is mild mitral valve regurgitation. 4. Small secundum atrial A History of chickenpox History of third degree perineal laceration 09/11/2019 Maternal care for other (suspected) abnormality and damage, not applicable or unspecified 06/25/2019 Current Overview for Clary Anand (updated 07/02/2019) Name Clary Anand Concerns Hypoplastic Left Heart Syndrome EDC Family Supports : Sergio Genetic Testing: Consults & Findings [facility] Echo 07/07/19 1. 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 2. 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 3. 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 05/16/2020 Added automatically from request for surgery [id number] Obesity affecting , antepartum 09/08/2019 Papanicolaou smear 08/01/2016 consult 07/29/2019 Rh negative status during in first trimester 04/08/2019 Will need Rhophylac at 28 weeks Past Surgical History: Past Surgical History: Procedure Laterality Date EXCISION LESION SOFT TISSUE BACK FLANK N/A 06/10/2020 Excision SQ mass back (2cm) SECTION 11/03/[address] Gordon Geronimo at [facility] REPAIR HERNIA UMBILICAL [facility]COP[facility] Medications: Current Outpatient Medications Medication Sig fexofenadine-pseudoephedrine 60-120 MG Tab SR 12 HR tablet Take 1 tablet by mouth 2 times daily. Take for one week, then call with an update Allergies: Allergies Allergen Reactions Honey Bee Venom Family History: Family History Problem Relation Age of Onset Diabetes Father diabetes mellitus type 1 Myocardial Infarction Father Stroke Maternal Grandmother stroke x2, CHF Age-Related Macular Degeneration Maternal Grandmother Diabetes Paternal Grandmother Type 1 Arthritis - Osteo Maternal Grandfather Cancer Maternal Grandfather small cell lung Lung Cancer Maternal Grandfather Thyroid Disease Mother Migraines Mother Other - Specify Son hypoplastic left heart Social History: Social History Socioeconomic History Marital status: Spouse name: Not on file Number of children: Not on file Years of education: Not on file Highest education level: Not on file Occupational History Not on file Tobacco Use Smoking status: Never Smoker Smokeless tobacco: Never Used Vaping Use Vaping Use: Never used Substance and Sexual Activity Alcohol use: No Drug use: Never Sexual activity: Not Currently Partners: Male control/protection: None Other Topics Concern Service Not Asked Blood Transfusions Not Asked Caffeine Concern Not Asked Occupational Exposure Not Asked Hobby Hazards Not Asked Sleep Concern Not Asked Stress Concern Not Asked Weight Concern Not Asked Special Diet Not Asked Back Care Not Asked Exercise Not Asked Bike Helmet Not Asked Seat Belt Not Asked Domestic Violence Not Asked Social History Narrative Not on file Social Determinants of Health Financial Resource Strain: Not on file Food Insecurity: Not on file Transportation Needs: Not on file Physical Activity: Not on file Stress: Not on file Social Connections: Not on file Intimate Partner Violence: Not on file Housing Stability: Not on file Exam: Vitals: 09/21/21 0910 Temp: 97.1 F (36.2 C) General: Well-developed, well-nourished Communication and Voice: Clear pitch and clarity Respiratory Respiratory effort: Equal inspiration and expiration without stridor No dyspnea at rest Cardiovascular Peripheral Vascular: Warm extremities with equal color/perfusion Eyes: No nystagmus with equal extraocular motion bilaterally Neuro/Psych/Balance: Patient oriented to person, place, and time; Appropriate mood and affect; Gait is intact with no imbalance; Cranial nerves I-XII are intact Head and Face Inspection: Normocephalic and atraumatic without mass or lesion Palpation: Facial skeleton intact without bony stepoffs Facial Strength: Facial motility symmetric and full bilaterally ENT Pinna: External ear intact and fully developed External canal: Canal is patent with intact skin Tympanic Membrane: Clear and mobile External Nose: No scar or anatomic deformity TMJ: Mild pain to palpation with full mobility on the left Assessment/Plan: - Left TMJ arthropathy - Bruxism The patient was oriented about today's findings. The patient's tinnitus and pressure appear to be from inflammation of the left TMJ from her clenching and teeth grinding. The patient was oriented about medical therapy for this including cold compresses and the use of a soft diet for 5 days initially to relief some of the stress to the joint. She was also recommended to have a mouthguard fitted by her dentist to prevent future damage to the joint. No ISACC or any ear infection were found today. Since the tinnitus is intermittent, the likelihood of this being a paraganglioma is very slim to none. She was made aware of this. 5-10 minutes were spent looking over the patient's referral physician's note, related lab, studies and pathology results before the patient was evaluated today. documented in this encounter [facility] 09-11-2021 History of Presen t illness Narrative ua poctNurse Note: Review of Systems Constitutional: Negative for chills, fatigue and fever. HENT: Negative for congestion, ear discharge, ear pain, rhinorrhea and sore throat. Eyes: Negative for pain and redness. Respiratory: Negative for cough, chest tightness, shortness of breath and wheezing. Cardiovascular: Negative for chest pain and palpitations. Gastrointestinal: Negative for abdominal pain, constipation, diarrhea and nausea. Endocrine: Negative for cold intolerance and heat intolerance. Genitourinary: Positive for frequency. Negative for dysuria. Musculoskeletal: Positive for neck pain. Negative for back pain. Skin: Negative for rash and wound. Neurological: Positive for headaches. Negative for dizziness and light-headedness. Psychiatric/Behavioral: Negative for sleep disturbance. Nursing Assessment: Physical Exam Clary Mckenna Anand comes in today with the following concerns: Chief Complaint Patient presents with Other Heart beat in ears. Eye twitching, UTI symptoms. Pt is here to discuss pulsatile tinnitis - left ear, intermittent. Onset was spontaneous 08/06/21. It can be triggered by stress. She also has left eye twitching. She also has microheadaches (located on the left). Headaches have been worse this week. Tinnitus is 10 seconds or less, 0-10 times per day. Headaches feel like pressure behind her eye. She has been to [facility] a few times after the of her son nearly 2 years ago and it was somewhat helpful for her neck stiffness. Claritin for a few days ? Helped, but sometimes tinnitus is intermittent it is difficult to determine. Tinnitus is like a heartbeat. Initially she felt that it had palpitations, but now it is always a regular HR. She denies confusion, auditory hallucinations, gustatory hallucinations, poor memory, or imbalance. She is working 50 hours/week, and her family had COVID last week. Her elderly grandmother fell and broke her hip. Of note, she has had dysuria that was present and then went away with increase in fluid intake, now returned. Current Outpatient Medications Medication Sig Dispense Refill cephALEXin 500 MG capsule Take 1 capsule by mouth every 12 hours for 7 days. 14 capsule 0 fexofenadine-pseudoephedrine 60-120 MG Tab SR 12 HR tablet Take 1 tablet by mouth 2 times daily. Take for one week, then call with an update 60 tablet 0 No current facility-administered medications for this visit. Social History Socioeconomic History Marital status: Spouse name: Not on file Number of children: Not on file Years of education: Not on file Highest education level: Not on file Occupational History Not on file Tobacco Use Smoking status: Never Smoker Smokeless tobacco: Never Used Vaping Use Vaping Use: Never used Substance and Sexual Activity Alcohol use: No Drug use: Never Sexual activity: Not Currently Partners: Male control/protection: None Other Topics Concern Service Not Asked Blood Transfusions Not Asked Caffeine Concern Not Asked Occupational Exposure Not Asked Hobby Hazards Not Asked Sleep Concern Not Asked Stress Concern Not Asked Weight Concern Not Asked Special Diet Not Asked Back Care Not Asked Exercise Not Asked Bike Helmet Not Asked Seat Belt Not Asked Domestic Violence Not Asked Social History Narrative Not on file Social Determinants of Health Financial Resource Strain: Not on file Food Insecurity: Not on file Transportation Needs: Not on file Physical Activity: Not on file Stress: Not on file Social Connections: Not on file Intimate Partner Violence: Not on file Housing Stability: Not on file Past Medical History: Diagnosis Date delivery delivered 11/04/2019 hypoplastic left heart affecting antepartum care of mother 06/25/2019 Current Overview for Clary Anand (updated 07/02/2019) Name Clary Anand Concerns Hypoplastic Left Heart Syndrome EDC Family Supports : Sergio Genetic Testing: Consults & Findings [facility] Echo 07/07/19 1. 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 2. 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 3. There is mild mitral valve regurgitation. 4. Small secundum atrial A History of chickenpox History of third degree perineal laceration 09/11/2019 Maternal care for other (suspected) abnormality and damage, not applicable or unspecified 06/25/2019 Current Overview for Clary Anand (updated 07/02/2019) Name Clary Anand Concerns Hypoplastic Left Heart Syndrome EDC Family Supports : Sergio Genetic Testing: Consults & Findings [facility] Echo 07/07/19 1. 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 2. 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 3. 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 05/16/2020 Added automatically from request for surgery [id number] Obesity affecting , antepartum 09/08/2019 Papanicolaou smear 08/01/2016 consult 07/29/2019 Rh negative status during in first trimester 04/08/2019 Will need Rhophylac at 28 weeks Past Surgical History: Procedure Laterality Date EXCISION LESION SOFT TISSUE BACK FLANK N/A 06/10/2020 Excision SQ mass back (2cm) SECTION 11/03/[address] Gordon Geronimo at [facility] REPAIR HERNIA UMBILICAL [facility]AROSCOPIC [facility] Family History Problem Relation Age of Onset Diabetes Father diabetes mellitus type 1 Myocardial Infarction Father Stroke Maternal Grandmother stroke x2, CHF Age-Related Macular Degeneration Maternal Grandmother Diabetes Paternal Grandmother Type 1 Arthritis - Osteo Maternal Grandfather Cancer Maternal Grandfather small cell lung Lung Cancer Maternal Grandfather Thyroid Disease Mother Migraines Mother Other - Specify Son hypoplastic left heart ua poctNurse Note: Review of Systems Constitutional: Negative for chills, fatigue and fever. HENT: Negative for congestion, ear discharge, ear pain, rhinorrhea and sore throat. Eyes: Negative for pain and redness. Respiratory: Negative for cough, chest tightness, shortness of breath and wheezing. Cardiovascular: Negative for chest pain and palpitations. Gastrointestinal: Negative for abdominal pain, constipation, diarrhea and nausea. Endocrine: Negative for cold intolerance and heat intolerance. Genitourinary: Positive for frequency. Negative for dysuria. Musculoskeletal: Positive for neck pain. Negative for back pain. Skin: Negative for rash and wound. Neurological: Positive for headaches. Negative for dizziness and light-headedness. Psychiatric/Behavioral: Negative for sleep disturbance. Nursing Assessment: Physical Exam BP 118/74 Pulse 63 Temp 98.1 F (36.7 C) Resp 18 Ht 1.651 m (5' 5 ) Wt 97.3 kg (214 lb 9.6 oz) SpO2 98% BMI 35.71 kg/m Smoking Status Never Smoker Physical Exam Physical Exam Vitals and nursing note reviewed. Constitutional: General: She is not in acute distress. Appearance: Normal appearance. She is obese. She is not ill-appearing or diaphoretic. HENT: Head: Normocephalic. Right Ear: Ear canal and external ear normal. Left Ear: Ear canal and external ear normal. Ears: Comments: Bubbles behind TM right, moderate effusion left with small bubbles Nose: No congestion or rhinorrhea. Mouth/Throat: Mouth: Mucous membranes are moist. Pharynx: No oropharyngeal exudate or posterior oropharyngeal erythema. Comments: Tonsils 3+ b/l, no erythema or exudate Eyes: Extraocular Movements: Extraocular movements intact. Conjunctiva/sclera: Conjunctivae normal. Pupils: Pupils are equal, round, and reactive to light. Comments: Fundoscopic exam normal b/l Neck: Vascular: No carotid bruit. Cardiovascular: Rate and Rhythm: Normal rate and regular rhythm. Heart sounds: Normal heart sounds. No murmur heard. No friction rub. No gallop. Pulmonary: Effort: Pulmonary effort is normal. No respiratory distress. Breath sounds: Normal breath sounds. No wheezing or rales. Abdominal: General: Bowel sounds are normal. There is no distension. Palpations: Abdomen is soft. Tenderness: There is no abdominal tenderness. Musculoskeletal: General: Normal range of motion. Lymphadenopathy: Cervical: No cervical adenopathy. Skin: General: Skin is warm and dry. Findings: No erythema or rash. Neurological: General: No focal deficit present. Mental Status: She is alert and oriented to person, place, and time. Cranial Nerves: No cranial nerve deficit, dysarthria or facial asymmetry. Sensory: No sensory deficit. Motor: No weakness. Coordination: Romberg sign negative. Coordination normal. Gktkro-[id number]-[id number] Test and Heel to Painter Test normal. Rapid alternating movements normal. Gait: Gait normal. Deep Tendon Reflexes: Reflexes normal. Reflex Scores: Bicep reflexes are 2+ on the right side and 2+ on the left side. Patellar reflexes are 2+ on the right side and 2+ on the left side. Psychiatric: Behavior: Behavior normal. Thought Content: Thought content normal. Judgment: Judgment normal. Comments: Moderate anxiety, no depression, no SI/HI Results for orders placed or performed in visit on 09/11/21 POCT URINE DIPSTICK AUTOMATED Result Value Ref Range POCT APPEARANCE, URINE Cloudy POCT COLOR, URINE Dark Yellow POCT GLUCOSE, URINE Neg mg/dL POCT BILIRUBIN, URINE Neg POCT KETONES, URINE Neg mg/dL POCT SPECIFIC GRAVITY, URINE >=1.030 1.001 - 1.035 POCT BLOOD, URINE 2+ POCT PH, URINE 5.5 5 - 7 POCT PROTEIN, URINE Neg mg/dL POCT UROBILINOGEN, URINE 0.2 0 - 2 E.U./dL POCT NITRITE, URINE Pos POCT LEUKOCYTE, URINE Trace POCT ESTERASE, URINE POCT BACTERIA, URINE POCT WBC, URINE POCT RBC, URINE POCT AMORPHOUS, URINE POCT CASTS, QUANTITATIVE, URINE POCT SQUAMOUS EPIS, URINE POCT RENAL EPIS, URINE POCT CRYSTALS, URINE POCT URINE COMMENTS, URINE POCT MICROSCOPIC ASSESSMENT & PLAN: ICD-10-CM 1. Pulsatile tinnitus of left ear H93.A2 fexofenadine-pseudoephedrine 60-120 MG Tab SR 12 HR tablet 2. Urinary frequency R35.0 POCT URINE DIPSTICK AUTOMATED URINE CULTURE URINE CULTURE cephALEXin 500 MG capsule 3. BMI 35.0-35.9,adult Z68.35 4. Otitis media with effusion, bilateral H65.93 5. Neck muscle spasm M62.838 6. Chronic tonsillar hypertrophy J35.1 This is a new undiagnosed problem, with an associated acute problem (likely UTI). DDx for pulsatile tinnitus includes vascular malformation vs. Mass (neuro exam unremarkable)vs. Pseudotumor cerebri (normal fundoscopic exam) vs. Ear effusion (start tiara-D now, call in 2 weeks with an update) vs. Muscle spasm near the auditory nerve (next steps include neck PT and a trial of tizanidine). If no improvement, we will order MRI brain with contrast/MRA to r/o masses and vascular malformations vs. ENT referral. Time in room +45minutes, time documenting DOS =12 minutes, total time =67 minutes on DOS. documented in this encounter [facility] 01-04-2021 History of Presen t illness Narrative Pre Adoption Psychological Evaluation Name: Clary Anand : 1985 Age: 35 y.o. Sex: female [address]: [address] [place] [address] Date of Evaluation: 01/04/2021 Examiner: Darrin Trent PsyD Psychological Testing Table Code Date Time Spent Units Billed 44710 01/04/2021 NA 1 [id number] 01/04/2021 30 1 [id number] 01/04/2021 90 3 [id number] 01/12/2021 60 1 Prepared by: Darrin Pruitt Psychologist, [place] # [id number] Address: [address] [place] [address] Email: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 Name of Employer: [employer] Psychological Considerations: 1. Personality characteristics of each applicant: Include emotional and affective level, self-concept, self-image, temperament features, self-control capacity, confidence, tolerance, proactive capacities, skills, introversion, extraversion, resources, and personal weak-nesses. When submitting the report ,it is not necessary to attach the applied tests, a reference and results obtained within the analysis should be noted. This information is very helpful, when analyzing which family fits better with the needs and characteristics of a child, Clary presents with a mature emotional and affective resources. She has multiple interests and is successful at all she does though her current focus is on parenting and motherhood. She is giving and caring while also working to recognize her own needs and how to best take part in self care. She tends to be more emotionally expressive but is capable of logical thought and problem solving. She does best when given the opportunity to express herself and process through things with open discussion. She emotionally aware and sensitive to the needs and differences in those around her. She is flexible in mind set and behavior and plays many roles in her household. She appears moderate in terms of extroversion. * [place] Multiphasic Personality Inventory - 2 (MMPI-2) Validity Scales T-Scores VRIN 58 BOBY 50 F 37 FB 42 FP 41 FBS 34 L 57 K 48 S 58 Clinical Scales T-Scores Hs 35 D 49 Hy 41 Pd 39 Mf 62 Pa 45 Pt 35 Sc 33 Ma 45 Si 40 Valid profile with no elevations on clinical scales and not indication that she experiences emotional or psychological symptoms that would interfere with her suitability as an adoptive parent. 2. Marital Fitness: Couples's resources, expression of their affection, communication, conflict solution, satisfaction And non-satisfaction levels in their relationship Clary indicated she and Satish have been 7 years. Started a relationship when he was in medical school and had a long distance relationship for a while. She acknowledges they have had a tough couple years with the congenital heart defect in their child during [facility]. She recognizes they have different ways of coping. He goes running and she prefers to process with others. They have learned to meld these two areas. They participated in counseling at their [facility] to help them prepare for the possibility their child might not survive. 3. Identification, processing, and preparation of life experiences in each applicant's life: Resilience capacity, exploration of negative experiences, handling of grief, support and development of skills of overcoming, significant episodes, and projections. Clary acknowldedges she grew up with violence as normal around her on the streets of [place]. She is now more aware of the plight of third world countries, how economics and poverty affect things. She has developed a resiliency and modes of coping with stress. She has also learned how to deal with racism and cultural biases and has a good feel for how to develop cultural connection to many areas, from small town to big city. She has also had to deal with her son's medical condition. Additionally, her father stayed many months in [place] running their families private school. This was quite a change from her daily involvement with him when she still lived in [place]. This has instilled in her the importance of living for the moment, being present in her childrens' lives. 4. Handling of losses: Resiliences capacity with regards of significant losses, especially grief for infertility, and attitude according to gender, acceptance of several feelings that arise, and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 Neck Pain Shoulder Pain Pt complains of neck , upper back, and right shoulder pain that started yesterday. Creating some pain, numbness down the right arm. Specialty Diagnoses / Procedures Referred By Contac t Referred To Contact Diagnoses Cervical radiculopathy Procedures MRI SPINE CERVICAL WITHOUT CONTRAST [place] [facility], CERV SPINE Jasmeet Yancey, [address] [place] [address] Referral ID Status Reason Start Date Expiration Date Visits Re quested Visits Authorized [id number] Closed 11/30/2022 12/25/2023 1 1 Reason Comments Sore Throat Large tonsils Reason Comments Post-op 2 week post op tonsi ls 04/26/23 Care Teams (unrecognized sec tion and content) Stamping Operator Relationship Specialty Start Date End Date Shamir Pritchard MD PCP - General Family Medicine 09/14/16 Stamping Operator Relationship Specialty Start Date End Date Shamir Pritchard MD PCP - General Family Medicine 09/14/16 Stamping Operator Relationship Specialty Start Date End Date Shamir Pritchard MD PCP - General Family Medicine 09/14/16 Stamping Operator Relationship Specialty Start Date End Date Shamir Pritchard MD PCP - General Family Medicine 09/14/16 Stamping Operator Relationship Specialty Start Date End Date Shamir Pritchard MD PCP - General Family Medicine 09/14/16 Stamping Operator Relationship Specialty Start Date End Date Shamir Pritchard MD PCP - General Family Medicine 09/14/16 Stamping Operator Relationship Specialty Start Date End Date Shamir Pritchard MD PCP - General Family Medicine 09/14/16 Stamping Operator Relationship Specialty Start Date End Date Shamir Pritchard MD PCP - General Family Medicine 09/14/16 Stamping Operator Relationship Specialty Start Date End Date Shamir Pritchard MD [address] [place] [address] PCP - General Family Medicine 02/21/23 Stamping Operator Relationship Specialty Start Date End Date Shamir Pritchard MD [address] [place] [address] PCP - General Family Medicine 02/21/23 Stamping Operator Relationship Specialty Start Date End Date Shamir Pritchard MD [address] [place], [place] [id number] PCP - General Family Medicine 02/21/23 Scheduled Active and Recently Administ ered Medications (unrecognized section and content) Scheduled Medication Order 11/27/2022 11/28/2022 11/29/2022 Morphine (PF) injection 2 mg (COMPLETED) 2 mg, Subcutaneous, ONCE, 1 dose, On Josiane 11/29/22 at 0800 0736 (Given - Provid er: Lona Cassidy RN) ondansetron (ZOFRAN-ODT) disintegrating tablet 4 mg (COMPLETED) 4 mg, Oral, ONCE, 1 dose, On Josiane 11/29/22 at 0800 0736 (Given - Provid er: Lona Cassidy RN) orphenadrine (NORFLEX) injection 60 mg (COMPLETED) 60 mg, Intramuscular, ONCE, 1 dose, On Josiane 11/29/22 at 0800 0738 (Given - Provid er: Lona Cassidy RN) INFORMATION SOURCE (unrecogn ized section and content) DATE CREATED AUTHOR AUTHOR'S ORGANIZ ATION 12/03/2022 [facility] DATE CREATED AUTHOR AUTHOR'S ORGANIZ ATION 12/14/2022 [facility] DATE CREATED AUTHOR AUTHOR'S ORGANIZ ATION 03/22/2023 [facility] DATE CREATED AUTHOR AUTHOR'S ORGANIZ ATION 05/12/2023 [facility] DATE CREATED AUTHOR AUTHOR'S ORGANIZ ATION 05/14/2023 [facility] FOR RECORDS PERTAINING TO PATIENTS WHO ARE OR HAVE BEEN ENROLLED IN A CHEMICAL DEPENDENCY/SUBSTANCEABUSE PROGRAM, SOME INFORMATION MAY BE OMITTED. This clinical summary was aggregated from multiple sources. Caution should be exercised in using it in the provision of clinical care. This summary normalizes information from multiple sources, and as a consequence, information in this document may materially change the coding, format and clinical context of patient data. In addition, data may be omitted in some cases. CLINICAL DECISIONS SHOULD BE BASED ON THE PRIMARY CLINICAL RECORDS. [facility] [employer] [facility]. provides no warranty or guarantee of the accuracy or completeness of information in this document.
[2023-07-03 16:10] LABS: HPV APTIMA, High Risk Negative (Negative)
== END | disposition home or self-care (01) ==
PROVIDERS: PCP Family Medicine; Referring Provider Advanced Practice Midwife; Visit Provider Advanced Practice Midwife
DX: Z12.4 Encounter for screening for malignant neoplasm of cervix (principal); R30.0 Dysuria
CPT/HCPCS: 87077; 87086; 87088; 87186; 87624; 88175; G0145